=== PATIENT | female | born 1945 | race Caucasian/White ===

== ENCOUNTER 2020-01-01 22:41 | Inpatient (IN) | payer MEDICARE ==
[~2020-01-01] VITALS: Ht 162.6 cm; Wt 103.7 kg
[~2020-01-01 22:41] MED LIST: ACIDOPHILUS1 EAC2 PO; AMIT50 PO; AMLO10 PO; ASPI325 PO; ASPI81CH; ASPI81CH PO; ATOR10 PO; BLISTEX MEDICAT10 GM TP; CALCA500CH PO; CITA20 PO; CLOP75 PO; Cranberry 4001 EACH PO; ESCI10; EUTHYROX50 MCG PO; Emla Cream30 GM TP; FEXPSEER; FURO20 PO; HUMULIN 70100 UNIT/1; HYDACE5 PO; HYDMOR4; HYDMOR4 PO; Humalog100 UNIT/3 SC; INSDET100; INSDET100 SC; JANUMET XR 1001 EACH PO; JARDIANCE10 MG PO; JARDIANCE25 MG; LISI5 PO; METF500 PO; MULVITA PO; ONDA8 PO; PIOG30 PO; POTCHL20ER PO; SITA100T2 PO; SITA50T2 PO; STOOL SOFTENER50 MG; SULTRIDS PO; Silvadene20 GM TOP; Ultram50 MG PO; WOMEN'S DAILY1 EACH; WOMEN'S DAILY1 EACH PO; [UNRECOGNIZED DRUG - OTHER]; [UNRECOGNIZED DRUG - OTHER] PO; [UNRECOGNIZED DRUG - REMARK]; [UNRECOGNIZED DRUG - REMARK]; [UNRECOGNIZED DRUG - REMARK]; [UNRECOGNIZED DRUG - REMARK]; [UNRECOGNIZED DRUG - REMARK]
[2020-01-01] MEDS ORDERED: TRESIBA FL100 UNIT/2 SC (23:29)
[2020-01-01 23:50] LABS: BASOPHILS ABSOLUTE AUTO 0.07 K/mm3 (0.00-0.23); BASOPHILS PERCENT AUTO 0 % (0-2); EOSINOPHILS ABSOLUTE AUTO 0.07 K/mm3 (0.00-0.68); EOSINOPHILS PERCENT AUTO 0 % (0-6); Hematocrit 40.4 % (33.0-51.0); IMMATURE GRAN ABSOLUTE AUTO 0.09 K/mm3 (0.00-0.10); IMMATURE GRAN PERCENT AUTO 1 % (0-1); LYMPHOCYTES PERCENT AUTO 9 % (21-46); MONOCYTES ABSOLUTE AUTO 1.05 K/mm3 (0.16-1.47); MONOCYTES PERCENT AUTO 6 % (4-13); Mean Corpuscular HGB 28.4 pg (26.0-34.0); Mean Corpuscular HGB Conc 32.2 g/dL (31.5-36.5); Mean Corpuscular Volume 88 fL (80-100); Mean Platelet Volume 10.6 fL (9.1-12.4); NEUTROPHILS ABSOLUTE AUTO 14.12 K/mm3 (1.96-9.15); NEUTROPHILS PERCENT AUTO 83 % (41-73); Platelet Count 214 K/mm3 (150-400); RDW Coefficient Variation 14.4 % (11.7-14.2); RDW Standard Deviation 46.2 fL (35.1-46.3); Red Blood Cell Count 4.57 M/mm3 (3.80-5.20)
[2020-01-02 00:07] LABS: Albumin, Blood 2.7 g/dL (3.4-5.0); Albumin/Globulin Ratio 0.5 (0.8-1.8); Bilirubin, Total 0.3 mg/dL (0.1-1.0); Bun/Creatinine Ratio 12.4 (12.0-20.0); Calcium, Blood 9.2 mg/dL (8.5-10.1); Creatinine, Blood 2.41 mg/dL (0.40-1.00); Globulin, Blood 5.1 g/dL (2.2-4.0); Potassium, Blood 5.2 mmol/L (3.5-5.5); Total Protein, Blood 7.8 g/dL (6.4-8.2)
[2020-01-02 05:04] LABS: Source, Urine Clean Catch
[2020-01-02 05:06] LABS: Appearance, Urine Clear (Clear); Bilirubin, Urine Neg (Neg); Blood, Urine 2+ (Neg); Color, Urine Yellow (P-Yellow); Glucose Qualitative, Urine 4+ (Neg); Ketones, Urine Neg (Neg); Leukocyte Esterase, Urine Neg (Neg); Nitrite, Urine Neg (Neg); Protein, Urine 4+ (Neg); Urobilinogen, Urine NORM (Normal)
[2020-01-02 05:13] LABS: BASOPHILS ABSOLUTE AUTO 0.09 K/mm3 (0.00-0.23); BASOPHILS PERCENT AUTO 0 % (0-2); EOSINOPHILS ABSOLUTE AUTO 0.01 K/mm3 (0.00-0.68); EOSINOPHILS PERCENT AUTO 0 % (0-6); Hematocrit 40.5 % (33.0-51.0); IMMATURE GRAN ABSOLUTE AUTO 0.11 K/mm3 (0.00-0.10); IMMATURE GRAN PERCENT AUTO 1 % (0-1); LYMPHOCYTES ABSOLUTE AUTO 3.63 K/mm3 (0.84-5.20); LYMPHOCYTES PERCENT AUTO 17 % (21-46); MONOCYTES ABSOLUTE AUTO 1.64 K/mm3 (0.16-1.47); MONOCYTES PERCENT AUTO 8 % (4-13); Mean Corpuscular HGB 28.6 pg (26.0-34.0); Mean Corpuscular HGB Conc 32.1 g/dL (31.5-36.5); Mean Corpuscular Volume 89 fL (80-100); Mean Platelet Volume 10.3 fL (9.1-12.4); NEUTROPHILS ABSOLUTE AUTO 15.91 K/mm3 (1.96-9.15); NEUTROPHILS PERCENT AUTO 74 % (41-73); Platelet Count 228 K/mm3 (150-400); RDW Coefficient Variation 14.6 % (11.7-14.2); RDW Standard Deviation 47.3 fL (35.1-46.3); Red Blood Cell Count 4.54 M/mm3 (3.80-5.20); White Blood Cell Count 21.39 K/mm3 (4.00-11.30)
[2020-01-02 05:22] LABS: Bacteria Few /hpf; Hyaline Casts 0-2 /lpf (0-2); Squamous Epithelial Cells Few /hpf (Few); White Blood Cells, Urine 0-2 /hpf (0-5)
[2020-01-02 05:32] LABS: Albumin, Blood 2.6 g/dL (3.4-5.0); Albumin/Globulin Ratio 0.5 (0.8-1.8); Bilirubin, Total 0.3 mg/dL (0.1-1.0); Bun/Creatinine Ratio 12.7 (12.0-20.0); Calcium, Blood 9.5 mg/dL (8.5-10.1); Creatinine, Blood 2.37 mg/dL (0.40-1.00); Globulin, Blood 5.3 g/dL (2.2-4.0); Potassium, Blood 4.5 mmol/L (3.5-5.5); Total Protein, Blood 7.9 g/dL (6.4-8.2)
--- NOTE | 2020-01-02 06:40 | NUR ---
shift summary ao room air - >90% tele nsr incontinent uop - attends changed no bm, no c/o nausea at this time sba to bsc no skin issues no c/o abd pain at this time vss - but bp very high - labetalol x1 call light within reach, bed alarm on. will continue to monitor.
--- NOTE | 2020-01-02 09:00 | NUR ---
RECEIVED REPORT FROM NOC RN. DR GUTIERREZ AGREED TO INCREASE PT'S DIET TO ADVANCE TOLERATED, AT THIS TIME PT HAS HAD JELLO, WATER AND GRAPE JUICE AND HAS NO NEW OR WORSENING ABD PAIN OR NAUSEA. PT HAS HAD HIGH BP THIS MORNING SUSTAINING ABOVE 190s SYSTOLIC, CLONIDINE WAS ADDED BY DR GUTIERREZ TO HER MORNING MEDS TODAY. AT RECHECK IT HAD DECREASED SOME BUT IS NOT YET STABLE. LUNG SOUNDS WERE CLEAR, HEART SOUNDS S1 AND S2 ARE PRESENT, PT WAS ON TELE WITH NSR, TELE HAS BEEN D'CD THIS MORNING BY DR GUTIERREZ. PT DENIES PAIN IN HER ABDOMEN BUT DOES HAVE SOME SLIGHT DISCOMFORT WITH PALPITATION. 3+ PITTING EDEMA BILATERAL LOWER EXTREMITIES. DR. GUTIERREZ REVIEWED IMAGING REPORTS THIS MORNING AND FOUND THAT THE PT HAS A SPOT ON HER LIVER, SHE IS BEING REFERRED FOR AN MRI. PT DOES HAVE A HISTORY OF ANAL CANCER. CBG WAS HIGH THIS MORNING PT RECEIVED 6UNITS OF COVERAGE WELL HER DAILY 30 UNITS. PT IS A&O X4 AND SBA TO THE BEDSIDE COMMODE.
--- NOTE | 2020-01-02 09:56 | NUR ---
Call to Dr. Lawler at his request to notify him of the pt's cancer doctor. Pt states that she saw both Dr. Enrique and Dr. Sanabria approx 5 years ago for treatment of anal cancer, but saw Dr. Enrique most.
[2020-01-02 12:42] LABS: International Normalized Ratio 0.98; Prothrombin Time Results 10.5 Sec (9.7-11.5)
--- NOTE | 2020-01-02 12:52 | NUR ---
*UPDATE* AFTER REVIEWING LABS AND KIDNEY FUNCTION DR. VIDES DECIDED AGAINS THE MRI. HE SPOKE WITH THE PT ABOUT CONSULTING WITH HER FORMER ONCOLOGY PHYSCIAN AND STATED HE WOULD ALSO CONSULT HER PCP IN REGARDS TO POSSIBLY GETTING A PET SCAN FOR FURTHER IMAGING REGARDING THE SPOT ON HER LIVER. SPOKE WITH THE PT WELL HER DAUGHTER
--- NOTE | 2020-01-02 15:34 | NUR ---
ELEVATED D-DIMER PT STARTED ON HEPARIN DRIP, GIVEN 1 TIME HEPARIN BOLUS. PT REPORTED FEELING SOME PAIN BEHIND HER LEFT KNEE LAST WEEK, BUT IT SEEMED TO GO AWAY THE NEXT DAY. DR. VIDES VERBALLY ORDERED AN US TO THE LEFT LOWER EXTREMITY TO RULE OUT DVT.
--- NOTE | 2020-01-02 17:09 | NUR ---
TRANSFER TO MEDICAL FLOOR CALLED TO GIVE REPORT TO RICHY ARAUJO ON MEDICAL FLOOR. PT LEFT FOR TRANSFER AT 1705 VIA WHEELCHAIR ACCOMPANIED BY ALLAN LORENZANA RN AND GRANDDAUGHTER. PT HAD HIGH BP AT THE START OF SHIFT AND CLONODINE WAS ADDED TO HER DAILY MEDS, LABETOLOL WAS GIVEN PRN X 1 THIS AFTERNOON, BP IS TRENDING DOWN. PT REPORTED PAIN AROUND 1510 AND WAS GIVEN 0.25ML DILAUDED, AT REASSESMENT PT WAS RESTING AND DENIED PAIN WHEN ASKED. PT WAS FELL BACK ASLEEP AND HAD OXYGEN SATURATION AT 90%, CPAP WAS APPLIED WHILE SLEEPING. TELE WAS D'CD THIS MORNING. PT LEFT THE FLOOR WITH HEPARIN DRIP AT 22.2ML/H AND NS @ 100ML/H. DIET WAS ADVANCED TOLERATED THROUGHOUT THE DAY, PT IS NOW ON ADA DIET. PT IS A&0 X4, BUT CAN OCCASSIONALLY BE FUZZY OR FORGETFUL BUT IS QUICKLY REORIENTED, FAMILY STATES THIS IS BASELINE AFTER A STROKE SEVERAL YEARS AGO. PT HAS HAD COVERAGE THROUGHOUT THE DAY FOR HIGH CBG. PT IS SBA/1 PERSON WITH WALKER DURING TRANSFERS.
--- NOTE | 2020-01-02 17:15 | NUR ---
TRANSFERRED CARE TO MEDICAL FLOOR. PT TRANSFERRED FROM PCU TO MEDICAL FLOOR. THE [facility] IN ROOM. PT SLEEPY, BUT WANTS TO EAT DINNER. WARM BLANKETS AND WATER BROUGHT IN. ORIENTED TO ROOM. VITALS CHECKED. CALL LIGHT IN REACH.
--- NOTE | 2020-01-02 21:01 | NUR ---
ASSUMED CARE. AOX3, COOPERATIVE. DENIES PAIN OR DISCOMFORT. LUNGS CLEAR. TELE- NSR. VS WNL, AFEBRILE. HEPARIN RUNNING AT 15ML/HR. IV FLUIDS INFUSING WELL. NO CHEST PAIN OR PALPITATIONS. 3+ EDEMA BLE. ABDOMIN ROUND AND DISTENDED, BTX4. STATES LITTLE MORE THEN NORMAL. CPAP PLACED ON, CONTINUOUS BIOX IN PLACE. DENIES ANY NEEDS AT THIS TIME. CALL LIGHT IN REACH.
[2020-01-03 05:12] LABS: Alpha Feto Protein, Tumor Mkr 1.7 ng/mL (0.0-8.0); Cancer Antigen 19-9 629.6 U/mL (2.0-37.0)
--- NOTE | 2020-01-03 05:34 | NUR ---
SHIFT SUMMARY: AOX4, SLEPT WELL T/O NIGHT. CPAP WORN, CONTINOUS BIOX SHOWED STATES 89-92%. LUNGS CLEAR. 1 ASSIST TO THE BATHROOM. IV HEPARIN DOSE ADJUST X1 NOW RUNNING 14KG/HR 20.7ML/HR. LAST APTT 85.2. SHE DID HAVE CRITICAL HIGH BEFORE THAT AT 104.1. INTAKE THIS SHIFT WAS 360 ORAL, 1148 IV. FINISHED 1500ML ORDERED FLUIDS. HEPARIN IS ONLY THING RUNNING AT THIS TIME. ABNORMAL LAB: CA 19-9 ANTIGEN WAS 629.6 THIS AM. VS WNL, AFEBRILE. BS WAS 208. HARSH COUGH NOTED NO PRODUCTION. DENIES PAIN OR DISCOMFORT. 3+EDEMA BLE. OUTPUT THIS SHIFT WAS 200 PLUSE 1 UNMEASURED VOID. NO OTHER CHANGES TO REPORT. CALL LIGHT HAS REMAINED IN REACH AND USED APPROPRIATLY.
[2020-01-03 07:32] LABS: Hematocrit 32.6 % (33.0-51.0); Hemoglobin 10.2 g/dL (11.5-16.0); Mean Corpuscular HGB 28.7 pg (26.0-34.0); Mean Corpuscular HGB Conc 31.3 g/dL (31.5-36.5); Mean Corpuscular Volume 92 fL (80-100); Mean Platelet Volume 12.2 fL (9.1-12.4); Platelet Count 167 K/mm3 (150-400); RDW Coefficient Variation 14.6 % (11.7-14.2); RDW Standard Deviation 49.6 fL (35.1-46.3); Red Blood Cell Count 3.56 M/mm3 (3.80-5.20); White Blood Cell Count 11.58 K/mm3 (4.00-11.30)
[2020-01-03 07:48] LABS: Calcium, Blood 8.9 mg/dL (8.5-10.1); Creatinine, Blood 2.76 mg/dL (0.40-1.00); Potassium, Blood 4.6 mmol/L (3.5-5.5)
--- NOTE | 2020-01-03 19:05 | NUR ---
SHIFT SUMMARY: NO ACUTE CHANGES TO REPORT THIS SHIFT. PT A&O; CALM AND COOPERATIVE WITH CARE. NO C/O PAIN THIS SHIFT. PORTAL VEIN THROMBOSIS; HEPARIN DRIP @ 20.7 ML/HR. WENDY; LR @ 125. EXPECTED D/C WHEN KIDNEY FUNCTION IMPROVES; PET SCAN OUTPATIENT; FOLLOWUP c ONCOLOGY R/T LEFT HEPATIC LOBE MASS. WCTM.
[2020-01-04 04:58] LABS: Bun/Creatinine Ratio 12.4 (12.0-20.0); Calcium, Blood 8.9 mg/dL (8.5-10.1); Creatinine, Blood 2.9 mg/dL (0.40-1.00); Potassium, Blood 4.7 mmol/L (3.5-5.5)
--- NOTE | 2020-01-04 05:06 | NUR ---
PT A/O X4. UP WITH 1 ASSIST TO THE BATHROOM. DENIES PAIN, NAUSEA, SOB. PT HAS BEEN HAVING SOME BOTHERSOME COUGH OVERNIGHT. PT STATES THIS HAS BEEN GOING ON FOR "2 DAYS". MEDICATED WITH TESSALON PERLE PER EMAR. NO ACUTE CHANGES. CALLS APPROPRIATELY. WILL CONTINUE TO MONITOR.
--- NOTE | 2020-01-04 17:30 | NUR ---
LATE ENTRY--- 1530 PT UP TO THE BATHROOM. UPON RETURNING TO THE BED RESP LABORED PULSE HIGH AND SATS LOW. PT NOT IMPROVING WITH TIME SATS GETTING LOWER. LUNG SOUNDS ARE MORE AUDIBLE AND CRACKLES THAT WERE BARELY AUDIBLE IN THE AM ARE NOW COARSE AND LOUD. PT HAS ALREADY RECIEVED IV LASIX 20 MG AND 40 MG WELL ALBUMIN. CALLED DR VILCHIS FOR INCREASED WORK OF BREATHING AND DECREASED SATS O2 REQ INCREASED. RT RAY CALLED RECOMENDED PT STAY ON BIPAP AT THIS TIME. RECIEVED ORDER FOR 2V CHEST XRAY. ECHO DONE EARLIER IN THE SHIFT. ANOTHER OT ORDER FOR 40MG IV LASIX RECIEVED. 1630 AFTER IV LASIX SBP THAT WAS 225 PRIOR TO LASIX NOW DOWN TO 197. CALLED DR AGAIN THE PT BEGAN C/O HER CHEST BEING TIGHT HER PULSE WAS ELEVATED 120'S RESP RATE AGAIN HIGH, SATS MAINTAINING. PT NOW FEBRILE 101.2. RECIEVED ORDER FOR OT DOSE OF CLONIDINE 0.1MG PO AND TYLENOL 650MG Q6P FOR PAIN AND FEVER. IN HOUSE TRANSFER AND RAPID COVID ORDERS RECIEVED. PT TO BE TRANSFERED TO [facility]
--- NOTE | 2020-01-04 19:15 | NUR ---
TRANSFER NOTE- PT TRANSFERED TO PCU 13 PT ALERT DAUGHTER AT THE BEDSIDE. GRAVES CONSULT CALLED AND ORDERS RECIEVED AND ENTERED IN ORDER MANAGEMENT. PT HR SEEMS TO BE SUSTAINING 120'S TO 130'S. TELEPHONE REPORT COMPLETED PRIOR TO TRANSFER, AFTER PT TRANSFER MORE INFORMATION PASSED IN BEDSIDE REPORT, NO FURTHER QUESTIONS AT THAT TIME. PCU STAFF AT THE BEDSIDE.
[2020-01-04 21:47] LABS: Source, Urine Catheter
[2020-01-04 21:53] LABS: Bilirubin, Urine Neg (Neg); Blood, Urine 2+ (Neg); Glucose Qualitative, Urine 2+ (Neg); Ketones, Urine Neg (Neg); Leukocyte Esterase, Urine Neg (Neg); Nitrite, Urine Neg (Neg); Protein, Urine 3+ (Neg); Urobilinogen, Urine NORM (Normal)
[2020-01-04 21:54] LABS: Appearance, Urine Clear (Clear); Color, Urine Pale Yellow (P-Yellow)
[2020-01-04 21:58] LABS: Amorphous Light (0-Heavy); Bacteria Not Seen /hpf; Red Blood Cells, Urine 0-2 /hpf (0-2); Squamous Epithelial Cells Not Seen /hpf (Few); White Blood Cells, Urine Rare /hpf (0-5)
--- NOTE | 2020-01-05 03:29 | NUR ---
PT ALERT AND ORIENTED, COOPERATIVE WITH CARE. DENIES PAIN. PT WORE CPAP FOR ABOUT AN HOUR THEN ASKED TO BE TRANSFERED FROM BED TO RECLINER TO SLEEP, SHE WAS PLACED ON 3L 02 VIA NASAL CONULA. DAUGHTER WAS IN ROOM AT BEGINNING OF SHIFT AND CALLED TO CHECK UP AROUND 2300. CATHETER INSERTED DUE TO RETENTION AND 24 HOUR URINE STARTED. VSS, NO ACUTE CHANGES. PT IS RESTING COMFORTABLY IN RECLINER. CALL LIGHT IN REACH, WILL CONTINUE TO MONITOR.
[2020-01-05 04:23] LABS: BASOPHILS ABSOLUTE AUTO 0.06 K/mm3 (0.00-0.23); BASOPHILS PERCENT AUTO 0 % (0-2); EOSINOPHILS ABSOLUTE AUTO 0.22 K/mm3 (0.00-0.68); EOSINOPHILS PERCENT AUTO 2 % (0-6); Hematocrit 32.7 % (33.0-51.0); Hemoglobin 10.3 g/dL (11.5-16.0); IMMATURE GRAN ABSOLUTE AUTO 0.06 K/mm3 (0.00-0.10); IMMATURE GRAN PERCENT AUTO 0 % (0-1); LYMPHOCYTES ABSOLUTE AUTO 2.61 K/mm3 (0.84-5.20); LYMPHOCYTES PERCENT AUTO 19 % (21-46); MONOCYTES ABSOLUTE AUTO 1.38 K/mm3 (0.16-1.47); MONOCYTES PERCENT AUTO 10 % (4-13); Mean Corpuscular HGB 28.3 pg (26.0-34.0); Mean Corpuscular HGB Conc 31.5 g/dL (31.5-36.5); Mean Corpuscular Volume 90 fL (80-100); Mean Platelet Volume 11.7 fL (9.1-12.4); NEUTROPHILS ABSOLUTE AUTO 9.19 K/mm3 (1.96-9.15); NEUTROPHILS PERCENT AUTO 68 % (41-73); Platelet Count 202 K/mm3 (150-400); RDW Coefficient Variation 14.3 % (11.7-14.2); RDW Standard Deviation 46.7 fL (35.1-46.3); Red Blood Cell Count 3.64 M/mm3 (3.80-5.20); White Blood Cell Count 13.52 K/mm3 (4.00-11.30)
[2020-01-05 04:45] LABS: Alanine Aminotransfer (ALT/SGP 15 U/L (12-78); Albumin, Blood 2.5 g/dL (3.4-5.0); Albumin/Globulin Ratio 0.5 (0.8-1.8); Alk Phos 77 U/L (50-136); Anion Gap 5 mmol/L (6-16); Aspartate Aminotrans (AST/SGOT 13 U/L (12-37); Bilirubin, Direct <0.1 mg/dL (0.0-0.3); Bilirubin, Indirect Unable to Calculate mg/dL (0.1-0.7); Bilirubin, Total 0.4 mg/dL (0.1-1.0); Blood Urea Nitrogen 41 mg/dL (8-24); Bun/Creatinine Ratio 13.4 (12.0-20.0); CO2, Blood 23 mmol/L (21-32); CPK Creatine Kinase 83 U/L (26-193); Calcium, Blood 9.5 mg/dL (8.5-10.1); Chloride, Blood 110 mmol/L (98-108); Creatinine, Blood 3.05 mg/dL (0.40-1.00); Globulin, Blood 4.6 g/dL (2.2-4.0); Glomerular Filtration Rate 16 (60-); Glucose, Blood 186 mg/dL (70-99); Magnesium, Blood 2.1 mg/dL (1.6-2.4); Phosphorus, Blood 3.6 mg/dL (2.5-4.9); Potassium, Blood 4.5 mmol/L (3.5-5.5); Sodium, Blood 138 mmol/L (136-145); Total Protein, Blood 7.1 g/dL (6.4-8.2); Uric Acid, Blood 6.5 mg/dL (2.6-6.0)
--- NOTE | 2020-01-05 17:10 | NUR ---
SHIFT SUMMARY PT AXO, PLEASANT AND COOPERATIVE WITH CARE. HTN NOTED WITH VS, MEDICATED PER EMAR. HEPARIN DRIP INFUSING PER EMAR. PT DENIES PAIN. ENCOURAGED OOB AND UP TO CHAIR THROUGHOUT THE SHIFT. NO ACUTE CHANGES THIS SHIFT. ON 3L VIA NC. 24 HOUR URINE COLLECTION IN PROGRESS. 1L FLUID RESTRICTION. PT HAS HAD 420 SO FAR THIS SHIFT. BED IN LOW POSITION, CALL LIGHT WITHIN REACH.
--- NOTE | 2020-01-05 18:11 | NUR ---
pt resting will return for visit.
[2020-01-05 19:58] LABS: International Normalized Ratio 0.95; Prothrombin Time Results 10.2 Sec (9.7-11.5)
--- NOTE | 2020-01-06 01:18 | NUR ---
PATIENT IS ALERT AND ORIENTED CAN BE FORGETFULL AT TIMES. SLEPT MOST THE NIGHT. PATIENT FOLLOWING FLUID RESTRICTION. 02 SATS REMAIN ABOVE 90% ON 3L NC. HEPARIN INFUSING. 24 HOUR URINE COLLECTED AND SENT TO LAB. VVS, MEAL COOKER ACUTE CHANGES. CALL LIGHT IN REACH, BED IN LOW POSITION. WILL CONTINUE TO MONITOR.
[2020-01-06 03:51] LABS: BASOPHILS ABSOLUTE AUTO 0.08 K/mm3 (0.00-0.23); BASOPHILS PERCENT AUTO 1 % (0-2); EOSINOPHILS ABSOLUTE AUTO 0.34 K/mm3 (0.00-0.68); EOSINOPHILS PERCENT AUTO 3 % (0-6); Hematocrit 32.2 % (33.0-51.0); Hemoglobin 10.2 g/dL (11.5-16.0); IMMATURE GRAN ABSOLUTE AUTO 0.07 K/mm3 (0.00-0.10); IMMATURE GRAN PERCENT AUTO 1 % (0-1); LYMPHOCYTES ABSOLUTE AUTO 2.93 K/mm3 (0.84-5.20); LYMPHOCYTES PERCENT AUTO 23 % (21-46); MONOCYTES ABSOLUTE AUTO 1.64 K/mm3 (0.16-1.47); MONOCYTES PERCENT AUTO 13 % (4-13); Mean Corpuscular HGB 28.2 pg (26.0-34.0); Mean Corpuscular HGB Conc 31.7 g/dL (31.5-36.5); Mean Corpuscular Volume 89 fL (80-100); Mean Platelet Volume 11.2 fL (9.1-12.4); NEUTROPHILS ABSOLUTE AUTO 7.54 K/mm3 (1.96-9.15); NEUTROPHILS PERCENT AUTO 60 % (41-73); Platelet Count 188 K/mm3 (150-400); RDW Coefficient Variation 14.1 % (11.7-14.2); RDW Standard Deviation 45.5 fL (35.1-46.3); Red Blood Cell Count 3.62 M/mm3 (3.80-5.20)
[2020-01-06 04:09] LABS: Albumin, Blood 2.1 g/dL (3.4-5.0); Anion Gap 8 mmol/L (6-16); Blood Urea Nitrogen 42 mg/dL (8-24); CO2, Blood 24 mmol/L (21-32); Chloride, Blood 107 mmol/L (98-108); Creatinine, Blood 3.01 mg/dL (0.40-1.00); Glomerular Filtration Rate 16 (60-); Glucose, Blood 174 mg/dL (70-99); Magnesium, Blood 1.9 mg/dL (1.6-2.4); Phosphorus, Blood 3.6 mg/dL (2.5-4.9); Potassium, Blood 3.9 mmol/L (3.5-5.5); Sodium, Blood 139 mmol/L (136-145)
--- NOTE | 2020-01-06 12:30 | NUR ---
PT ALERT AND ORIENTED THROUGHOUT MORNING, DENIES INCREASED SOB OR CP. HEPARIN INFUSION CONTINUES AT 20 U/KG/HR OR 29.6 ML/HR, INFUSION CONFIRMED WITH RICHY MCCALLUM AND RICHY CUEVAS AT SHIFT CHANGE. PT OXYGEN FLOW TITRATED FROM 3L/MIN TO 2L/MIN, MAINTAINS OXYGEN SATURATIONS >93%. PT STATUS CHANGED TO MEDICAL DEPT, REPORT GIVEN TO RICHY POSADA. PT TRANSFERED WITHOUT INCIDENT.
[2020-01-07 05:46] LABS: Hematocrit 33.2 % (33.0-51.0); Hemoglobin 10.6 g/dL (11.5-16.0)
[2020-01-07 06:20] LABS: Anion Gap 8 mmol/L (6-16); Blood Urea Nitrogen 51 mg/dL (8-24); Bun/Creatinine Ratio 15.7 (12.0-20.0); CO2, Blood 25 mmol/L (21-32); Calcium, Blood 9.4 mg/dL (8.5-10.1); Chloride, Blood 105 mmol/L (98-108); Creatinine, Blood 3.25 mg/dL (0.40-1.00); Glomerular Filtration Rate 15 (60-); Glucose, Blood 197 mg/dL (70-99); Magnesium, Blood 2.2 mg/dL (1.6-2.4); Phosphorus, Blood 4.1 mg/dL (2.5-4.9); Potassium, Blood 3.9 mmol/L (3.5-5.5); Sodium, Blood 138 mmol/L (136-145)
--- NOTE | 2020-01-07 07:44 | NUR ---
MEAT CARVER SUMMARY Joe was able to ouse CPAP successfully all night. Domingo catheter draining large amounts of pale yellow urine. Patient is sticking to her fluid limits amounts without complaints, and has had no complaints of pain or discomfort overnight.
--- NOTE | 2020-01-07 11:05 | NUR ---
PATIENT GAVE PPERMISSION FOR DIRECTOR SAFETY TO PROVIDE CARE ON 01/07/2020
--- NOTE | 2020-01-07 15:11 | NUR ---
INITIAL PAL CARE CONSULT VISIT - Referral received for s/s management and advanced care planning. Pt was admitted with L upper abd pain, acute on chronic renal failure and discovery of hepatic mass. She is 74 years old and has past medical hx of DM, HTN, asthma, CKD stage 2, JUSTO and previous rectal cancer tx per Dr Sanabria and nonmalignant crainial mass. Pt is lying supine in bed and a little sleepy with medications to control pain. She wakes easily and is able to converse and participate in the conversation. Her daughter, Sharon is at the bedside and is also participatory in our conversation. Pt reports her pain s/s are well managed currently, "I don't have a single complaint". She understands she has a liver mass and that some testing cannot be done right now because of her impaired kidney function. Her daughter asked about reasons for impaired kidney function and we spoke about general causes & possible causes r/t hepatic mass, HTN, DM, medications and dehydration. I encouraged pt and froilan to ask physicians for additional specific input re: her renal impairment. Pt's daughter states they have pt's recommended PET scan scheduled for next week and will have consult visit with pt's oncologist after results of that are available. We reviewed advanced care planning. Pt does not have an AD or POLST at this time. I feel she is a little too sleepy to work on that today. She confirmed that her froilan, Sharon would be her surrogate medical decision maker if she was unable to communicate with us. She confirmed at this time she would like to be a full code, which is consistent with our current orders. I reviewed CPR and intubation and burden vs benefit of multiple advanced care options. Pt and daughter receptive to reviewing "Hard Choices for [employer] People" to help generate questions for pt's oncologist and PCP when she meets with them. I also gave our contact info to pt and froilan if they would like to contact Palliative care for questions, discussion or completing an AD or POLST in the future. Pt was able to assist me and her froilan with a change of position in bed. Michael pitting edema noted. Pt appears comfortable as reported. No nonverbal indicators of pain noted. Pt seems subdued and sl anxious, which is completely understandable under the circumstances of a new dx and multiple co-morbidities affecting both work-up and treatment options. She appears to have good support with attentive daughter at bedside and helping coordinate appointments and care. No further f/u needed at this time but Pal Care will remain available and return if requested or indicated by Drs or staff.
--- NOTE | 2020-01-08 05:26 | NUR ---
74 year old Female admitted 01/02/20 with ARF presented with acute abd pain per her report which has since resolved. She has full code status, had pallative care consult. HX of breast & colon cancer. Had chemo for colon cancer. Had CT which showed thrombus & mass. PT aware as well as DTR acknowledged. PT had escobar cath dc on day shift. Able to void. Up with assist. Uses CPAP at HS. PT hoping to DC when cleared. Denies acute distress.
[2020-01-08 05:37] LABS: BASOPHILS ABSOLUTE AUTO 0.07 K/mm3 (0.00-0.23); BASOPHILS PERCENT AUTO 1 % (0-2); EOSINOPHILS ABSOLUTE AUTO 0.35 K/mm3 (0.00-0.68); EOSINOPHILS PERCENT AUTO 3 % (0-6); Hematocrit 32.2 % (33.0-51.0); Hemoglobin 10.2 g/dL (11.5-16.0); IMMATURE GRAN ABSOLUTE AUTO 0.05 K/mm3 (0.00-0.10); IMMATURE GRAN PERCENT AUTO 1 % (0-1); LYMPHOCYTES ABSOLUTE AUTO 2.76 K/mm3 (0.84-5.20); LYMPHOCYTES PERCENT AUTO 27 % (21-46); MONOCYTES PERCENT AUTO 16 % (4-13); Mean Corpuscular HGB 27.8 pg (26.0-34.0); Mean Corpuscular HGB Conc 31.7 g/dL (31.5-36.5); Mean Corpuscular Volume 88 fL (80-100); Mean Platelet Volume 11.7 fL (9.1-12.4); NEUTROPHILS ABSOLUTE AUTO 5.33 K/mm3 (1.96-9.15); NEUTROPHILS PERCENT AUTO 53 % (41-73); Platelet Count 221 K/mm3 (150-400); RDW Coefficient Variation 13.8 % (11.7-14.2); RDW Standard Deviation 43.9 fL (35.1-46.3); Red Blood Cell Count 3.67 M/mm3 (3.80-5.20); White Blood Cell Count 10.16 K/mm3 (4.00-11.30)
[2020-01-08 06:07] LABS: Albumin, Blood 2.1 g/dL (3.4-5.0); Albumin/Globulin Ratio 0.4 (0.8-1.8); Bilirubin, Total 0.2 mg/dL (0.1-1.0); Bun/Creatinine Ratio 16.6 (12.0-20.0); Calcium, Blood 9.4 mg/dL (8.5-10.1); Creatinine, Blood 3.55 mg/dL (0.40-1.00); Globulin, Blood 4.9 g/dL (2.2-4.0); Potassium, Blood 3.6 mmol/L (3.5-5.5)
[2020-01-08] MEDS ORDERED: XARELTO15 MG PO (11:11)
[2020-01-08] MEDS ORDERED: Flomax0.4 MG PO (11:12)
[2020-01-08] MEDS ORDERED: BUME2 PO (11:15)
[2020-01-08] MEDS ORDERED: FAMO10 PO (11:16)
[2020-01-08] MEDS ORDERED: Catapres0.2 MG PO (11:16)
[2020-01-08] MEDS ORDERED: HYDR10 PO (11:17)
[2020-01-08] MEDS ORDERED: ISOSORBIDE MONO30 MG PO (11:18)
[2020-01-08] MEDS ORDERED: HUMALOG KW100 UNIT/1 SC (11:18)
[2020-01-08] MEDS ORDERED: MIRALAX17 GM PO (11:19)
[2020-01-08] MEDS ORDERED: METO5 PO (11:19)
--- NOTE | 2020-01-08 12:27 | NUR ---
DISCHARGED HOME IN CARE OF DAUGHTER. ALL PERSONAL BELONGINGS IN HER POSSESSION. VERBALIZED UNDERSTANDING OF THE DISCHAGE INSTRUCTIONS, FOLLOW-UPS AND MEDICATIONS. ALL QUESTIONS ANSWERED.
== END 2020-01-08 12:31 | disposition home or self-care (01) | DRG 441 ==
LOC: ER 22:41 → PCU 22:42 → MEDS 01-02 15:52 → PCU 01-02 15:53 → MEDS 01-02 17:08 → PCU 01-04 19:05 → MEDS 01-06 12:44
PROVIDERS: Emergency Medicine; Internal Medicine; Internal Medicine Gastroenterology; Internal Medicine Nephrology; Physician Assistant; ADMIT Internal Medicine
DX: I81 Portal vein thrombosis (principal); I50.33 Acute on chronic diastolic (congestive) heart failure; N17.9 Acute kidney failure, unspecified; E87.2 Acidosis; R65.10 Systemic inflammatory response syndrome (SIRS) of non-infectious origin without acute organ dysfunction; I13.0 Hypertensive heart and chronic kidney disease with heart failure and stage 1 through stage 4 chronic kidney disease, or unspecified chronic kidney disease; I16.0 Hypertensive urgency; D72.829 Elevated white blood cell count, unspecified; N18.2 Chronic kidney disease, stage 2 (mild); Z85.048 Personal history of other malignant neoplasm of rectum, rectosigmoid junction, and anus; G47.33 Obstructive sleep apnea (adult) (pediatric); E78.5 Hyperlipidemia, unspecified; Z87.891 Personal history of nicotine dependence; Z79.4 Long term (current) use of insulin; E66.9 Obesity, unspecified; Z20.828 Contact with and (suspected) exposure to other viral communicable diseases; E11.22 Type 2 diabetes mellitus with diabetic chronic kidney disease; E88.09 Other disorders of plasma-protein metabolism, not elsewhere classified; Z68.36 Body mass index [BMI] 36.0-36.9, adult
CPT/HCPCS: 36415; 51703; 71045; 71046; 74176; 76705; 80048; 80053; 80069; 81001; 81050; 82105; 82150; 82248; 82378; 82550; 82947; 83605; 83690; 83735; 83880; 84100; 84145; 84156; 84300; 84550; 85014; 85018; 85025; 85027; 85379; 85610; 85651; 85730; 86301; 87040; 93005; 93010; 93306; 93971; 94660; 94762; 96365; 96372; 96374; 96375; 96376; 99285-25; A9270; A9270-GY; G0378; J0696; J1170; J1644; J1940; J2405; J7030; J7120; P9046; U0004

== ENCOUNTER 2020-01-12 09:38 | Inpatient (IN) | payer MEDICARE ==
[~2020-01-12] VITALS: Ht 157.5 cm; Wt 92.8 kg
[~2020-01-12 09:38] MED LIST changes: +BUME2 PO; +Catapres0.2 MG PO; +FAMO10 PO; +Flomax0.4 MG PO; +HUMALOG KW100 UNIT/1 SC; +HYDR10 PO; +ISOSORBIDE MONO30 MG PO; +METO5 PO; +MIRALAX17 GM PO; +TRESIBA FL100 UNIT/2 SC; +XARELTO15 MG PO
[2020-01-12] MEDS ORDERED: GLIP10ER PO (10:32)
[2020-01-12 12:20] LABS: BASOPHILS ABSOLUTE AUTO 0.07 K/mm3 (0.00-0.23); BASOPHILS PERCENT AUTO 1 % (0-2); EOSINOPHILS ABSOLUTE AUTO 0.24 K/mm3 (0.00-0.68); EOSINOPHILS PERCENT AUTO 2 % (0-6); Hematocrit 34.1 % (33.0-51.0); IMMATURE GRAN ABSOLUTE AUTO 0.05 K/mm3 (0.00-0.10); IMMATURE GRAN PERCENT AUTO 0 % (0-1); LYMPHOCYTES ABSOLUTE AUTO 3.09 K/mm3 (0.84-5.20); LYMPHOCYTES PERCENT AUTO 25 % (21-46); MONOCYTES ABSOLUTE AUTO 1.51 K/mm3 (0.16-1.47); MONOCYTES PERCENT AUTO 12 % (4-13); Mean Corpuscular HGB 28.2 pg (26.0-34.0); Mean Corpuscular HGB Conc 32.3 g/dL (31.5-36.5); Mean Corpuscular Volume 87 fL (80-100); Mean Platelet Volume 10.9 fL (9.1-12.4); NEUTROPHILS ABSOLUTE AUTO 7.52 K/mm3 (1.96-9.15); NEUTROPHILS PERCENT AUTO 60 % (41-73); Platelet Count 300 K/mm3 (150-400); RDW Coefficient Variation 13.6 % (11.7-14.2); White Blood Cell Count 12.48 K/mm3 (4.00-11.30)
[2020-01-12] MEDS ORDERED: NITROFURANTOIN50 M2 PO (12:36)
[2020-01-12] MEDS ORDERED: METF500C PO (12:39)
[2020-01-12 12:40] LABS: Albumin, Blood 2.6 g/dL (3.4-5.0); Albumin/Globulin Ratio 0.5 (0.8-1.8); Bilirubin, Total 0.3 mg/dL (0.1-1.0); Calcium, Blood 9.6 mg/dL (8.5-10.1); Creatinine, Blood 4.5 mg/dL (0.40-1.00); Globulin, Blood 5.1 g/dL (2.2-4.0); Potassium, Blood 3.5 mmol/L (3.5-5.5); Total Protein, Blood 7.7 g/dL (6.4-8.2)
--- NOTE | 2020-01-12 17:33 | NUR ---
SHIFT SUMMARY- PT ADMITTED THROUGH THE ED FOR PERMACATH PLACEMENT. CALLED DR BAKER TO DETERMINE IF THE PT WOULD BE HAVING THE PROCEDURE TONIGHT THE PT WAS ASKING FOR FOOD AND HAD A DIET ORDER. DR BAKER STATED TO KEEP THE PT NPO HE WOULD BE HERE SHORTLY TO PLACE THE PERMACATH. SURGICAL TEAM JUST ARRIVED AT 1735 TO TAKE HER FOR CATH PLACEMENT. PT HAS REMAINED NPO SINCE HER ADMIT. PT DAUGHTER HAS BEEN AT THE BEDSIDE SINCE THE PT ARRIVED. DAUGHTER WENT TO THE STORE AND PLANS TO RETURN WITH A NEW BOOK FOR THE PT TO READ TONIGHT. UNCERTAIN IF DIALYSIS IS PLANNED FOR TONIGHT OR TOMORROW MORNING.
--- NOTE | 2020-01-13 03:36 | NUR ---
SHIFT SUMMARY A/O, ABLE TO MAKE NEEDS KNOWN. COOPERATIVE WITH CARE. ANSWERS QUESTIONS APPROPRIATELY. C/O PAIN/DISCOMFORT TO RCW FROM PERMACATH PLACEMENT; NEW ORDERS FOR TYLENOL Q4. MEDICATED PER EMAR. VSS/AFEBRILE. PERMACATH SITE STARTED LEAKING SANGINOUS FLUID AROUND 2250; PRESSURE DRESSING APPLIED TO RE-INFORCE. CONTINUED TO CHECK T/O SHIFT; OF NOW VERY SLOW. DID NOT APPEAR TO REST MUCH OVER NIGHT. NO OTHER ACUTE CHANGES NOTED OVERNIGHT. BED REAMINED IN LOWEST POSITION. CALL LIGHT AND BELONGINGS WITHIN REACH. WCTM. REPORT TO ONCOMING RN.
[2020-01-13 05:57] LABS: Hematocrit 30.4 % (33.0-51.0); Hemoglobin 9.9 g/dL (11.5-16.0)
[2020-01-13 06:13] LABS: Albumin, Blood 2.3 g/dL (3.4-5.0); Anion Gap 11 mmol/L (6-16); Blood Urea Nitrogen 87 mg/dL (8-24); Bun/Creatinine Ratio 18.9 (12.0-20.0); CO2, Blood 27 mmol/L (21-32); Calcium, Blood 8.9 mg/dL (8.5-10.1); Chloride, Blood 98 mmol/L (98-108); Glomerular Filtration Rate 10 (60-); Glucose, Blood 219 mg/dL (70-99); Magnesium, Blood 2.6 mg/dL (1.6-2.4); Phosphorus, Blood 5.9 mg/dL (2.5-4.9); Potassium, Blood 3.7 mmol/L (3.5-5.5); Sodium, Blood 136 mmol/L (136-145)
--- NOTE | 2020-01-13 08:25 | NUR ---
CALLED DR SAMANO- PT IS GOING TO HER FIRST BOUT OF DIALYSIS THIS MORNING AT 0900. SBP WAS IN THE 130'S THIS MORNING. PT HAS AMLODIPINE, BUMEX, CLONIDINE, IMDUR, FLOMAX, METOLAZONE AND HYDRALIZINE ORDERED, CONCERN FOR PT NOT TOLLERATING DIALYSIS AFTER THESE MEDICATIONS. CHANGED SOME ORDERS AND PLACED PARAMETERS FOR THE PT BP MEDS AND ORDER RECIEVED TO HOLD BP MEDS UNTIL AFTER DIALYSIS.
--- NOTE | 2020-01-13 15:18 | NUR ---
Met with Joe and her dtr, Sharon, in her room this afternoon. Joe had her first run of HD this morning and she states that she did ok. She appears fatigued, however has no complaints at this time. She will be receiving HD again tomorrow per nurse report. Joe has an appointment for a PET scan on Tuesday01/15/20 at 1230 and she wants to make sure she doesn't miss this appointment to evaluate her liver. Brief overview of HD with Joe and her dtr. No questions at this time. PC will continue to follow.
--- NOTE | 2020-01-13 16:00 | NUR ---
CALLED DR HAAS- PT HAS ORDR FOR ARANESP WHICH HAS A RISK FOR CAUSING BLOOD CLOTS. 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 CALLED MEGHA MEADOWS AND HE AGREED THERE WAS A MUCH INCREASED RISK FOR THIS PT. SPOKE TO DR SAMINA SCHLUZ TO HOLD AND DC THE ORDER.
--- NOTE | 2020-01-13 16:30 | NUR ---
CALLED PALLIATIVE CARE RN CASSI- PT WAS RECENTLY DISCHARGED FROM THE HOSPITAL ON [facility], DTR STATED THAT SHE FILLED THE SCRIPT WHICH COST $304. LOOKS LIKE THE PT WILL BE CHANGED TO ELIQUIS D/T RENAL FUNCTION. DTR RAISED THE CONCERN OF THE COST FOR THIS MEDICINE THEY JUST GOT THE OTHER. PALLIATIVE CARE RN WILL LOOK FOR SOME RESOURCES AND SPEAK WITH THE PT FAMILY.
--- NOTE | 2020-01-13 17:00 | NUR ---
CALLED RT MARICRUZ- PT RECIEVED A DOSE OF IV ZOFRAN. IMMEDIATELY AFTER SHE BECAME VERY GROGGY, PT HAS NOT SLEPT SINCE SHE WOKE FROM PERMACATH PLACEMENT, AND SHE HAD HER FIRST BOUT OF DIALYSIS TODAY. PT ON CONT BIOX SATS 88-92 REGULARLY. PT DAUGHTER LEFT SO THE PT COULD GET SOME SLEEP AND HER SATS REDUCED AGAIN TO LOW 82%. PLACED THE PT ON CPAP AND HER SATS IMPROVED UNTIL SHE FELL ASLEEP THEN SHE DROPPED TO 84% AND STAYED THERE, RT ARRIVED AND PLACED THE PT ON CPAP WITH 3L BLEED IN. PT SATS MAINTAINING AT 90-92% AT THIS TIME.
--- NOTE | 2020-01-13 17:03 | NUR ---
Pt's dtr has questions re: assistance programs that may be available to assist with the cost of eliquis. Provided pt and her dtr with [employer] support 800 numer as well as [employer] Patient Assistance program number. LM for CM to see if they have any other options for Rx assistance. Pt and her dtr expressed gratitude for the information.
--- NOTE | 2020-01-13 17:30 | NUR ---
CALLED RT MARICRUZ- PT SATS STAYING STEADY AT 97% ON THE CPAP NOW. OK TO REDUCE THE O2 BLEED IN TO 1L. PT SATS MAINTAINING AT 91-92%.
--- NOTE | 2020-01-13 18:17 | NUR ---
SPOKE TO MEGHA MEADOWS- PT FIRST DOSE OF BUMEX WAS DELAYED D/T HER FIRST BOUT OF DIALYSIS TODAY SO SHE RECIEVED IT AT NOON. PER MEGHA NEXT DOSE SCHEDULED AT 1800 SHOULD BE MOVED OK TO GIVE WITH EVENING MEDS AT 2100.
--- NOTE | 2020-01-13 18:24 | NUR ---
CALLED DR SAMANO- PT STATED NAUSEA AND ASKED FOR EMESIS BAG. NO ORDER FOR NAUSEA MEDS IN EMAR. LEFT A MESSAGE 1650.
--- NOTE | 2020-01-13 18:34 | NUR ---
SHIFT SUMMARY- PT ALERT AND ORIENTED BUT A LITTLE FORGETFUL. PT MEDICATED FOR NAUSEA ONCE THIS EVENING, IT SEEMED TO MAKE HER VERY GROGGY AND SHE TOOK A 45 MINUTE NAP WITH O2 ON HER CPAP SEE PREVIOUS NOTES FOR DETAILS. PT WOKE FROM THE NAP BRIGHT AND SHINY IN [place] AND ATE DINNER WITH [employer]. NEW DIET ORDERED FOR HER HIGH PROTIENE, LOW CARB ADA. PT CAN NOT HAVE FRUIT AT THIS TIME. THESE ARE DIET RESTRICTIONS FOR THE PT IMPENDING PET SCAN PLANNED FOR TUESDAY. PLAN IS FOR PT TO RECIEVE DIALYSIS TOMORROW AND THEN RETURN HOME. FAMILY IS VERY INVOLVED WITH THE PT CARE AND HAVE SOME MEDICAL BACKGROUND. PT CURRENTLY SITTING UP IN BED WITH CALL LIGHT IN REACH, NO S&S OF DISTRESS NOTED AT THIS TIME WILL CTM. PT ON ROOM AIR SATS 92%.
--- NOTE | 2020-01-13 23:18 | NUR ---
01/13/20 2300 HAVING NAUSEA AND VOMITING THIS EVENING. MEDICATED AND FINALLY ABLE TO TAKE PM MEDS WITH WATER. SALTINE CRACKERS GIVEN TO HELP WITH N/V. RT CHEST PERMA-CATH SITE WITHOUT BLEEDING NOTED.
--- NOTE | 2020-01-13 23:52 | NUR ---
01/13/20 2350 PULSE OXIMETER READING 86% ON ROOM AIR WHILE SLEEPING. CPAP OFF SHE HAS ON AND OFF N/V. RN APPLIED O2 AT 2LPM VIA N/C. RESP. CARE, PARVEEN, NOTIFIED.
[2020-01-14 06:00] LABS: Hematocrit 33.6 % (33.0-51.0); Hemoglobin 10.4 g/dL (11.5-16.0)
--- NOTE | 2020-01-14 06:20 | NUR ---
01/14/20 0610 SLIGHT NAUSEA AFTER SHE GOT UP TO BATHROOM TO VOID. ALSO SHE HAD SOME INCONTINENCE IN BRIEF. VITALS STABLE. SIPPING ON ICE WATER. NO OTHER COMPLAINTS.
[2020-01-14 06:29] LABS: Albumin, Blood 2.3 g/dL (3.4-5.0); Anion Gap 8 mmol/L (6-16); Blood Urea Nitrogen 49 mg/dL (8-24); Bun/Creatinine Ratio 13.5 (12.0-20.0); CO2, Blood 33 mmol/L (21-32); Calcium, Blood 8.9 mg/dL (8.5-10.1); Chloride, Blood 96 mmol/L (98-108); Creatinine, Blood 3.62 mg/dL (0.40-1.00); Glomerular Filtration Rate 13 (60-); Glucose, Blood 295 mg/dL (70-99); Magnesium, Blood 2.6 mg/dL (1.6-2.4); Potassium, Blood 3.7 mmol/L (3.5-5.5); Sodium, Blood 137 mmol/L (136-145)
[2020-01-14 08:10] LABS: HBSAG SCREEN Negative (Negative)
--- NOTE | 2020-01-14 18:33 | NUR ---
SHIFT SUMMARY CARLITA WENT TO DIALYSIS THIS MORNING. SHE WAS TOO NAUSEOUS BEFOREHAND TO TAKE PILLS. IV ZOFRAN AND IV PHENERGAN GIVEN PRIOR TO HER LEAVING THE FLOOR. UPON HER RETURN, SHE FELT WELL ENOUGH TO TAKE THEM. DAUGHTER AT BS FOR MOST OF THE DAY (RN AT [place]). SBA TO BR. WAS ON 2L OXYGEN THIS MORNING, WEANED TO ROOM AIR WHILE AWAKE, BUT DESATS WHEN NAPPING--ENSURE CPAP ON FOR SLEEPING. (DESAT TO 82%). INSULIN CHANGED TO MED SLIDING SCALE WITH AN ADDITIONAL 5 UNITS LANTUS DAILY PER DR HAAS. COMPLAINED OF SOME PAIN IN HER R SHOULDER NEAR PERMACATH, TYLENOL AND TRAMADOL GIVEN. TOOK MEDS PRESCRIBED, CALL LIGHT IN REACH, WCTM
--- NOTE | 2020-01-14 18:39 | NUR ---
Spiritual care note: I met with pt's dtr at bedside. Pt appeared weak and slept throughout visit. Dtr admits to feeling overwhelmed with pt's illness and decline. she is hopeful that dialysis "will kick-start" pt's kidneys. Dtr expresses hope that mom will return to baseline. Provided gentle college and career counselor and encouraged self-care while pt hospitalized. Dtr feels obligated to stay. I sispect pt and dtr will benefit from ACP at some point. Not sure expectaions are realistic. Today was not the day for that however. I will remain available.
--- NOTE | 2020-01-15 04:39 | NUR ---
SHIFT SUMMARY AOX4. SLEEPY/DROWSY @BEGINNING OF SHIFT, HOWEVER ABLE TO ANSWER QUESTIONS APPROPRIATE. DID HAVE DIALYSIS YESTERDAY 01/14/20. REPORTED 8[facility]10 [facility], REPOSITIONED & GAVE TRAMADOL 1X FOR 7/10 PAIN- PT STATED MILD RELIEF c PAIN LEVEL DECREASING TO 6/10. PT REPORTED NAUSEA AFTER AMBULATING TO RESTROOM, MEDICATED c ZOFRAN, GAVE ICE CHIPS, REPOSITIONED- STATES MILD RELIEF FROM NAUSEA. SPO2 DROPPING TO LOW 80'S ON RA c & W/O CPAP, PLACED PT ON 2L O2 & SPO2 INCREASED >90%. PLAN TO DC AFTER OUTPATIENT DIALYSIS IS SET UP. CALL LIGHT IN REACH.
[2020-01-15 05:30] LABS: Hematocrit 34.2 % (33.0-51.0); Hemoglobin 10.7 g/dL (11.5-16.0)
[2020-01-15 06:02] LABS: Albumin, Blood 2.5 g/dL (3.4-5.0); Anion Gap 7 mmol/L (6-16); Blood Urea Nitrogen 34 mg/dL (8-24); Bun/Creatinine Ratio 9.1 (12.0-20.0); CO2, Blood 33 mmol/L (21-32); Calcium, Blood 8.9 mg/dL (8.5-10.1); Chloride, Blood 94 mmol/L (98-108); Creatinine, Blood 3.72 mg/dL (0.40-1.00); Glomerular Filtration Rate 13 (60-); Glucose, Blood 213 mg/dL (70-99); Magnesium, Blood 2.1 mg/dL (1.6-2.4); Phosphorus, Blood 4.9 mg/dL (2.5-4.9); Potassium, Blood 3.8 mmol/L (3.5-5.5); Sodium, Blood 134 mmol/L (136-145)
[2020-01-15 07:10] LABS: HBSAG SCREEN Negative (Negative); HEP A AB, IGM Negative (Negative); HEP B CORE AB, IGM Negative (Negative); HEP C VIRUS AB 0.1 (0.0-0.9)
[2020-01-15] MEDS ORDERED: ELIQUIS5 MG PO ×2 (12:56→13:18)
[2020-01-15] MEDS ORDERED: ONDA4ODT MM (12:58)
--- NOTE | 2020-01-15 14:48 | NUR ---
DISCHARGE NOTE PT IV REMOVED BY RICHY YE. PT ASSISTED INTO HOME CLOTHING BY DISTRICT MEDICAL EXAMINER AND RICHY YE. PT BELONGINGS PRESENT WITH PT AND DAUGHTER UPON DC. THIS RN REVIEWED DC INSTRUCTIONS AND MEDICATIONS WITH PT AND DAUGHTER. PT ON RA AT DC AND SATS IN 98%. PT WHEELED OFF UNIT IN WHEELCHAIR BY DISTRICT MEDICAL EXAMINER AT APPROXIMATELY 1445.
== END 2020-01-15 14:39 | disposition home health service (06) | DRG 673 ==
LOC: ER 09:38 → MEDS 09:39
PROVIDERS: Emergency Medicine; Internal Medicine; Internal Medicine Nephrology; ADMIT Hospitalist
PROC: 05HM33Z Insertion of Infusion Device into Right Internal Jugular Vein, Percutaneous Approach (ICD-10-PCS; principal; 2020-01-13)
PROC: B513ZZA Fluoroscopy of Right Jugular Veins, Guidance (ICD-10-PCS; 2020-01-13)
PROC: 5A1D70Z Performance of Urinary Filtration, Intermittent, Less than 6 Hours Per Day (ICD-10-PCS; 2020-01-13)
PROC: 0JH63XZ Insertion of Tunneled Vascular Access Device into Chest Subcutaneous Tissue and Fascia, Percutaneous Approach (ICD-10-PCS; 2020-01-13)
PROC: 5A1D70Z Performance of Urinary Filtration, Intermittent, Less than 6 Hours Per Day (ICD-10-PCS; 2020-01-14)
PROC: 5A1D70Z Performance of Urinary Filtration, Intermittent, Less than 6 Hours Per Day (ICD-10-PCS; 2020-01-15)
DX: E11.22 Type 2 diabetes mellitus with diabetic chronic kidney disease (principal); I81 Portal vein thrombosis; N18.6 End stage renal disease; I13.2 Hypertensive heart and chronic kidney disease with heart failure and with stage 5 chronic kidney disease, or end stage renal disease; I50.32 Chronic diastolic (congestive) heart failure; R65.10 Systemic inflammatory response syndrome (SIRS) of non-infectious origin without acute organ dysfunction; N17.9 Acute kidney failure, unspecified; Z99.2 Dependence on renal dialysis; D63.1 Anemia in chronic kidney disease; E66.01 Morbid (severe) obesity due to excess calories; G47.33 Obstructive sleep apnea (adult) (pediatric); I16.0 Hypertensive urgency; Z86.73 Personal history of transient ischemic attack (TIA), and cerebral infarction without residual deficits; Z85.048 Personal history of other malignant neoplasm of rectum, rectosigmoid junction, and anus; E03.9 Hypothyroidism, unspecified; Z87.891 Personal history of nicotine dependence; I48.91 Unspecified atrial fibrillation; N25.81 Secondary hyperparathyroidism of renal origin; J45.909 Unspecified asthma, uncomplicated; F03.90 Unspecified dementia, unspecified severity, without behavioral disturbance, psychotic disturbance, mood disturbance, and anxiety; E87.70 Fluid overload, unspecified; Z68.36 Body mass index [BMI] 36.0-36.9, adult
CPT/HCPCS: 36415; 36558; 71045; 77001; 80053; 80069; 80074; 82947; 83735; 85014; 85018; 85025; 86317; 87340; 94660; 94762; 97116; 97162; 97165; 97535; 99152; 99284; A9270; A9270-GY; C1750; C1769; C1894; G0378; J1644; J2250; J2405; J2550; J3010; J7030; J7040; U0004

== ENCOUNTER 2020-08-15 08:42 | Day surgery (SDC) | payer MEDICARE ==
[~2020-08-15] VITALS: Ht 162.6 cm; Wt 89.3 kg
[~2020-08-15 08:42] MED LIST changes: +ALUMINUM H320 MG/5 M PO; +ELIQUIS5 MG PO; +GLIP10ER PO; +METF500C PO; +NITROFURANTOIN50 M2 PO; +ONDA4ODT MM; +PROM25 PO; +RENAL VITE PO
--- NOTE | 2020-08-15 09:51 | NUR ---
PT TO SDS VIA WC. Patient confirms NPO status and agrees with scheduled surgery. Patient reports completing Chlorhexadine shower X2 prior to admission to hospital. History, Chart, Medications and Allergies reviewed before start of procedure. Lungs clear T/O to Auscultation. Surgical site prepped with 2% Chlorhexidine cloth wipe. Patient States Post-Procedure ride home has been arranged.
--- NOTE | 2020-08-15 12:32 | NUR ---
Patient up to Ambulate independently. Gait steady. Discharge instructions reviewed with patient/Granddaughter. Patient/Granddaughter verbalizes understanding. Copy given to patient to take home. Dressing to procedure site clean, dry, intact with no visible drainage, swelling, erythema or bruising noted. Discharged via wheelchair to private car for ride home.
== END 2020-08-15 12:22 | disposition home or self-care (01) ==
LOC: ORSCMMR 08:42 → ORD 10:00 → ORSCMMR 12:22
PROVIDERS: Surgery
PROC: 0JPT3WZ Removal of Totally Implantable Vascular Access Device from Trunk Subcutaneous Tissue and Fascia, Percutaneous Approach (ICD-10-PCS; principal; 2020-08-15 10:00)
DX: Z45.2 Encounter for adjustment and management of vascular access device (principal); Z85.048 Personal history of other malignant neoplasm of rectum, rectosigmoid junction, and anus; E78.5 Hyperlipidemia, unspecified; I10 Essential (primary) hypertension; G47.33 Obstructive sleep apnea (adult) (pediatric); E11.9 Type 2 diabetes mellitus without complications; Z79.4 Long term (current) use of insulin; Z79.899 Other long term (current) drug therapy; Z87.891 Personal history of nicotine dependence; E66.9 Obesity, unspecified; Z68.34 Body mass index [BMI] 34.0-34.9, adult; E03.9 Hypothyroidism, unspecified
CPT/HCPCS: 82947; J0690; J1100; J2250; J2405; J2704; J3010; J7120

== ENCOUNTER 2021-01-26 12:23 | Day surgery (SDC) | payer MEDICARE ==
[~2021-01-26] VITALS: Ht 162.6 cm; Wt 86.0 kg
[~2021-01-26 12:23] MED LIST changes: +Synthroid200 MCG PO
--- NOTE | 2021-01-26 16:15 | NUR ---
patient [facility] to [facility]. sleeping. awakes easily to verbal stimuli. permacath dressing site soft and nontender. no bleeding no hematoma.
--- NOTE | 2021-01-26 17:00 | NUR ---
PATIENT SITTING UP IN BED EATING AND VISITING WITH GRAND DAUGHTER. [facility] SITE UNCHANGED. DENIES PAIN.
--- NOTE | 2021-01-26 17:45 | NUR ---
PATIENT AND GRAND DAUGHTER VERBALIZED UNDERSTANDING OF DISCHARGE INSTRUCTIONS AND PRECAUTIONS. PERMACATH SITE UNCHANGED, NO HEMATOMA, NO BLEEDING. DRESSING D&I. IV SITE DCED WITH CATHETER INTACT. PATIENT TAKEN BY WHEELCHAIR TO CAR WHERE TEO WAS WAITING.
== END 2021-01-26 17:40 | disposition home or self-care (01) ==
LOC: MHTC 12:23
DX: T82.9XXA Unspecified complication of cardiac and vascular prosthetic device, implant and graft, initial encounter (principal); I12.0 Hypertensive chronic kidney disease with stage 5 chronic kidney disease or end stage renal disease; N18.6 End stage renal disease; I48.91 Unspecified atrial fibrillation; E11.22 Type 2 diabetes mellitus with diabetic chronic kidney disease; E03.9 Hypothyroidism, unspecified; E66.9 Obesity, unspecified; Y71.1 Therapeutic (nonsurgical) and rehabilitative cardiovascular devices associated with adverse incidents; Z99.2 Dependence on renal dialysis; Z87.891 Personal history of nicotine dependence; Z88.8 Allergy status to other drugs, medicaments and biological substances; Z88.5 Allergy status to narcotic agent; Z79.4 Long term (current) use of insulin; Z68.34 Body mass index [BMI] 34.0-34.9, adult
CPT/HCPCS: 99152; 99153; C1750; C1769; J1644; J2250; J3010; J7040; J7050; Q9967

== ENCOUNTER 2021-03-30 08:17 | Inpatient (IN) | payer MEDICARE ==
[~2021-03-30] VITALS: Ht 162.6 cm; Wt 89.7 kg
[2021-03-30 09:31] LABS: BASOPHILS ABSOLUTE AUTO 0.12 K/mm3 (0.00-0.23); BASOPHILS PERCENT AUTO 1 % (0-2); EOSINOPHILS ABSOLUTE AUTO 0.18 K/mm3 (0.00-0.68); EOSINOPHILS PERCENT AUTO 1 % (0-6); Hematocrit 36.1 % (33.0-51.0); Hemoglobin 11.7 g/dL (11.5-16.0); IMMATURE GRAN ABSOLUTE AUTO 0.05 K/mm3 (0.00-0.10); IMMATURE GRAN PERCENT AUTO 0 % (0-1); LYMPHOCYTES ABSOLUTE AUTO 2.16 K/mm3 (0.84-5.20); LYMPHOCYTES PERCENT AUTO 16 % (21-46); MONOCYTES PERCENT AUTO 8 % (4-13); Mean Corpuscular HGB 28.8 pg (26.0-34.0); Mean Corpuscular HGB Conc 32.4 g/dL (31.5-36.5); Mean Corpuscular Volume 89 fL (80-100); Mean Platelet Volume 9.9 fL (9.1-12.4); NEUTROPHILS ABSOLUTE AUTO 9.73 K/mm3 (1.96-9.15); NEUTROPHILS PERCENT AUTO 73 % (41-73); Platelet Count 321 K/mm3 (150-400); RDW Coefficient Variation 15.9 % (11.7-14.2); Red Blood Cell Count 4.06 M/mm3 (3.80-5.20); White Blood Cell Count 13.34 K/mm3 (4.00-11.30)
[2021-03-30 09:51] LABS: Albumin, Blood 2.8 g/dL (3.4-5.0); Albumin/Globulin Ratio 0.5 (0.8-1.8); Bilirubin, Total 0.9 mg/dL (0.1-1.0); Bun/Creatinine Ratio 12.1 (12.0-20.0); Calcium, Blood 8.8 mg/dL (8.5-10.1); Creatinine, Blood 3.98 mg/dL (0.40-1.00); Globulin, Blood 6.1 g/dL (2.2-4.0); Potassium, Blood 3.9 mmol/L (3.5-5.5); Total Protein, Blood 8.9 g/dL (6.4-8.2)
[2021-03-30] MEDS ORDERED: ELIQUIS5 M2 PO (09:52)
--- NOTE | 2021-03-30 14:51 | NUR ---
Echocardiogrm completed.
--- NOTE | 2021-03-30 15:10 | NUR ---
INITIAL ASSESSMENT: Report recieved from Madison PRUITT RN. Patient arrived to PCU 13 via gurney and was able to pivot transfer to the bed. Patient is alert and oriented. She denies pain at this time. She states she is short of breath at this time, she also states this has been going on for about the last "month or so." LS Dim in the bases, biox 93% on RA. Patient states she uses a c-pap at home. BT+. PPP. She has a permacath to her right upper chest and a new fistula to her left upper arm bruit/thrill. Patient states they have not been able to use the fistula yet, as it is too new. VSS. HR irreg, she is a-flutter in the low 100s with Cardizem gtt infusing at 10mg/hr. Admission history and medication list complete. Patient denies other needs at this time. Call light in reach, will continue to monitor.
--- NOTE | 2021-03-30 17:43 | NUR ---
Update: Dr. Echevarria has been to see the patient. Bumex 4mg IV given per MD orders. Dr. Echevarria called after coming to see the patient, he would like the patient to be dialyzed tonight. Debbie energy trader called, she will be in her way in. Patient is resting comfortably in bed at this time. Heart rate remains 110-115 on Cardizem at 10mg/hr. Will continue to monitor.
--- NOTE | 2021-03-30 18:29 | NUR ---
Summary: Patient arrived from the ER today to PCU 13. She was admitted from dialysis for shortness of breath and tachycardia. Upon arrival she was noted to be in A-Fib with RVR, her rate has been controlled on a Cardizen GTT at 10 mgm/hr-this is keeping her heart rate in the low 100s. She has been SOB at rest, she is fluid overladed with plans to have dialsis tonight per Dr. Echevarria. Biox WNL on RA. Her daughter brought her C-Pap in from home. She has had no other changes or events this shift. Will report to oncoming RN.
[2021-03-31 04:55] LABS: Hemoglobin 11.3 g/dL (11.5-16.0)
[2021-03-31 05:42] LABS: Albumin, Blood 2.7 g/dL (3.4-5.0); Anion Gap 8 mmol/L (6-16); Blood Urea Nitrogen 34 mg/dL (8-24); Bun/Creatinine Ratio 10.1 (12.0-20.0); CO2, Blood 28 mmol/L (21-32); Calcium, Blood 8.2 mg/dL (8.5-10.1); Chloride, Blood 98 mmol/L (98-108); Creatinine, Blood 3.37 mg/dL (0.40-1.00); Glomerular Filtration Rate 13 (60-); Glucose, Blood 125 mg/dL (70-99); Magnesium, Blood 2.2 mg/dL (1.6-2.4); Phosphorus, Blood 4.6 mg/dL (2.5-4.9); Potassium, Blood 3.5 mmol/L (3.5-5.5); Sodium, Blood 134 mmol/L (136-145); Thyroxine (T4) 7.6 ug/dL (4.8-13.9)
--- NOTE | 2021-03-31 06:08 | NUR ---
SHIFT SUMMARY: VS STABLE T/O SHIFT. CARDIZEM DRIP TITRATED TO 5 MG/HR. DIALYSIS AT 2100 REMOVED 2L - PLAN TO DIALIZE AGAIN 03/31 AROUND 0900. AMBULATES WITH WALKER AND SBA TO THE TOILET. HOME CPAP AT NIGHT. NO ADVERSE EVENTS THIS SHIFT. WILL CONTINUE TO MONITOR AND REPORT TO ONCOMING RN.
--- NOTE | 2021-03-31 08:00 | NUR ---
INITIAL ASSESSMENT: Patient is awake sitting up in bed getting ready to eat breakfast. She denies pain this morning. She is slightly tachypnec at rest, biox 95% on 2l via NC, LS dim in the bases with some faint crackles. HR irreg, a-flutter in the 90s to low 100s-Cardizem gtt infusing at 5 mg/hr. Permacath to right upper chest with opsite dressing CDI. Patient has fistula to left arm + bruit and thrill. Bt hypoactive, pt declines bowel care this am. PPP. Trace edema to BLE. AM meds given with a sip of water, 2 units insulin given for CBG 180. Patient denies other needs at this time. Call light in reach, will continue to monitor.
--- NOTE | 2021-03-31 15:00 | NUR ---
Update: Patient was assisted to the bathroom. Upon assisting her [facility] care this RN noticed she had a pressure ulcer between her buttocks on her coccyx, stage 3 with a small amount of tunneling, it was cleansed. Patient was assisted back to bed. When asked if she has any discomfort she states, "it's a little sore. Will notify MD. Rate remains controlled with PO Cardizem.
--- NOTE | 2021-03-31 15:24 | NUR ---
Dr. Edwards was here to round. Plans for discharge. I talked with her about the patients pressure ulcer and possilbe wound care, home health orders placed. Patient denies needs at this time, will continue to monitor.
--- NOTE | 2021-03-31 17:00 | NUR ---
Discharge: Daughter at bedside for discharge instructions. She was able to visualize the patients pressure ulcer, dressing placed. Patient assisted to get dressed and into the wheelchair. Patient to home via WC with daughter.
== END 2021-03-31 17:21 | disposition home health service (06) | DRG 308 ==
LOC: ER 08:17 → PCU 12:17
PROVIDERS: Internal Medicine Nephrology; Physician Assistant; ADMIT Internal Medicine
DX: I48.0 Paroxysmal atrial fibrillation (principal); N18.6 End stage renal disease; I13.2 Hypertensive heart and chronic kidney disease with heart failure and with stage 5 chronic kidney disease, or end stage renal disease; I50.32 Chronic diastolic (congestive) heart failure; N25.81 Secondary hyperparathyroidism of renal origin; E87.1 Hypo-osmolality and hyponatremia; E11.22 Type 2 diabetes mellitus with diabetic chronic kidney disease; E87.70 Fluid overload, unspecified; E03.9 Hypothyroidism, unspecified; F03.90 Unspecified dementia, unspecified severity, without behavioral disturbance, psychotic disturbance, mood disturbance, and anxiety; D63.8 Anemia in other chronic diseases classified elsewhere; G47.33 Obstructive sleep apnea (adult) (pediatric); E88.09 Other disorders of plasma-protein metabolism, not elsewhere classified; J45.909 Unspecified asthma, uncomplicated; L98.429 Non-pressure chronic ulcer of back with unspecified severity; Z99.2 Dependence on renal dialysis; Z86.718 Personal history of other venous thrombosis and embolism; Z87.891 Personal history of nicotine dependence; Z86.73 Personal history of transient ischemic attack (TIA), and cerebral infarction without residual deficits; Z86.011 Personal history of benign neoplasm of the brain; Z79.01 Long term (current) use of anticoagulants; Z79.899 Other long term (current) drug therapy; Z79.4 Long term (current) use of insulin; Z88.5 Allergy status to narcotic agent; Z88.8 Allergy status to other drugs, medicaments and biological substances
CPT/HCPCS: 36415; 71046; 80053; 80069; 82947; 83690; 83735; 83880; 84436; 84443; 84484; 85014; 85018; 85025; 93005; 93010; 93306; 94660; 94762; A9270; C1751; J1815; J1940

== ENCOUNTER → 2021-05-15 | Outpatient (CLI) | payer MEDICARE ==
[~2021-05-15] MED LIST changes: +Cleocin HCl150 MG PO; +DESV50 PO; +DILT120 PO; +ELIQUIS5 M2 PO
== END | disposition home or self-care (01) ==
LOC: LAB DAV 10:05
DX: R17 Unspecified jaundice (principal)
CPT/HCPCS: 82140

== ENCOUNTER 2021-06-03 01:49 | Day surgery (SDC) | payer MEDICARE ==
[~2021-06-03 01:49] MED LIST changes: -Cleocin HCl150 MG PO; -DESV50 PO; -DILT120 PO
== END 2021-06-03 23:22 | disposition home or self-care (01) ==
LOC: WOUND 01:49
DX: L89.154 Pressure ulcer of sacral region, stage 4 (principal); I13.0 Hypertensive heart and chronic kidney disease with heart failure and stage 1 through stage 4 chronic kidney disease, or unspecified chronic kidney disease; I50.9 Heart failure, unspecified; N18.6 End stage renal disease; E11.22 Type 2 diabetes mellitus with diabetic chronic kidney disease; G47.33 Obstructive sleep apnea (adult) (pediatric); Z99.2 Dependence on renal dialysis
CPT/HCPCS: A9270; G0463

== ENCOUNTER 2021-06-10 02:17 | Day surgery (SDC) | payer MEDICARE | END 2021-06-10 23:27 | disposition home or self-care (01) | LOC: WOUND 02:17 | DX: L89.154 Pressure ulcer of sacral region, stage 4 (principal); I13.2 Hypertensive heart and chronic kidney disease with heart failure and with stage 5 chronic kidney disease, or end stage renal disease; I50.9 Heart failure, unspecified; N18.6 End stage renal disease; E11.22 Type 2 diabetes mellitus with diabetic chronic kidney disease; G47.33 Obstructive sleep apnea (adult) (pediatric) | CPT/HCPCS: G0463 ==

== ENCOUNTER 2021-06-19 01:02 | Day surgery (SDC) | payer MEDICARE | END 2021-06-19 23:00 | disposition home or self-care (01) | LOC: WOUND 01:02 | DX: L89.154 Pressure ulcer of sacral region, stage 4 (principal); T66.XXXD Radiation sickness, unspecified, subsequent encounter; I13.2 Hypertensive heart and chronic kidney disease with heart failure and with stage 5 chronic kidney disease, or end stage renal disease; I50.9 Heart failure, unspecified; N18.6 End stage renal disease; E11.22 Type 2 diabetes mellitus with diabetic chronic kidney disease; G47.33 Obstructive sleep apnea (adult) (pediatric); Z99.2 Dependence on renal dialysis; Z85.048 Personal history of other malignant neoplasm of rectum, rectosigmoid junction, and anus | CPT/HCPCS: A9270 ==

== ENCOUNTER 2021-06-26 01:12 | Day surgery (SDC) | payer MEDICARE | END 2021-06-26 22:52 | disposition home or self-care (01) | LOC: WOUND 01:12 | DX: L89.154 Pressure ulcer of sacral region, stage 4 (principal); L59.8 Other specified disorders of the skin and subcutaneous tissue related to radiation | CPT/HCPCS: A9270; G0463 ==

== ENCOUNTER 2021-08-01 19:19 | Inpatient (IN) | payer MEDICARE ==
[~2021-08-01] VITALS: Ht 162.6 cm; Wt 69.7 kg
[2021-08-01 20:20] LABS: BASOPHILS ABSOLUTE AUTO 0.06 K/mm3 (0.00-0.23); BASOPHILS PERCENT AUTO 0 % (0-2); EOSINOPHILS PERCENT AUTO 2 % (0-6); Hematocrit 32.8 % (33.0-51.0); Hemoglobin 10.7 g/dL (11.5-16.0); IMMATURE GRAN ABSOLUTE AUTO 0.03 K/mm3 (0.00-0.10); IMMATURE GRAN PERCENT AUTO 0 % (0-1); LYMPHOCYTES ABSOLUTE AUTO 5.19 K/mm3 (0.84-5.20); LYMPHOCYTES PERCENT AUTO 39 % (21-46); MONOCYTES PERCENT AUTO 12 % (4-13); Mean Corpuscular HGB 29.3 pg (26.0-34.0); Mean Corpuscular HGB Conc 32.6 g/dL (31.5-36.5); Mean Corpuscular Volume 90 fL (80-100); Mean Platelet Volume 10.3 fL (9.1-12.4); NEUTROPHILS ABSOLUTE AUTO 6.28 K/mm3 (1.96-9.15); NEUTROPHILS PERCENT AUTO 47 % (41-73); Platelet Count 366 K/mm3 (150-400); RDW Coefficient Variation 14.7 % (11.7-14.2); Red Blood Cell Count 3.65 M/mm3 (3.80-5.20); White Blood Cell Count 13.36 K/mm3 (4.00-11.30)
[2021-08-01 20:40] LABS: Albumin, Blood 1.6 g/dL (3.4-5.0); Albumin/Globulin Ratio 0.2 (0.8-1.8); Bilirubin, Total 1.1 mg/dL (0.1-1.0); Bun/Creatinine Ratio 7.5 (12.0-20.0); Calcium, Blood 9.2 mg/dL (8.5-10.1); Creatinine, Blood 4.54 mg/dL (0.40-1.00); Globulin, Blood 6.9 g/dL (2.2-4.0); Magnesium, Blood 2.3 mg/dL (1.6-2.4); Potassium, Blood 3.7 mmol/L (3.5-5.5); Total Protein, Blood 8.5 g/dL (6.4-8.2)
[2021-08-01 22:08] LABS: Source, Urine Straight Cath
[2021-08-01 22:14] LABS: Bilirubin, Urine Neg (Neg); Blood, Urine 5+ (Neg); Glucose Qualitative, Urine Neg (Neg); Ketones, Urine Neg (Neg); Leukocyte Esterase, Urine 3+ (Neg); Nitrite, Urine Neg (Neg); Protein, Urine 4+ (Neg); Urobilinogen, Urine NORM (Normal)
[2021-08-01 22:23] LABS: Appearance, Urine Turbid (Clear); Color, Urine Yellow (P-Yellow)
[2021-08-01 22:24] LABS: Bacteria Many /hpf; Red Blood Cells, Urine 0-2 /hpf (0-2); Squamous Epithelial Cells Not Seen /hpf (Few); White Blood Cells, Urine TNTC /hpf (0-5)
[2021-08-02] MEDS ORDERED: DILT120 PO (03:10)
[2021-08-02] MEDS ORDERED: Cleocin HCl150 MG PO (03:10)
[2021-08-02] MEDS ORDERED: DESV50 PO (03:11)
[2021-08-02 04:17] LABS: Base Excess Venous 5.5 mmol/L; Bicarbonate Venous 29.9 mmol/L (24.0-30.0); PCO2 Venous 23.6 mmHg (38-42); PO2 Venous 88.1 mmHg (38-42)
[2021-08-02 04:18] LABS: pH Blood Venous 7.65 (7.34-7.37)
--- NOTE | 2021-08-02 04:20 | NUR ---
PT ARRIVED FROM ED AROUND 299, SHE IS AWAKE AND ANSWERING QUESTIONS, SHE IS INTERMITTENTLY CONFUSED IN HER ANSWERS, IE TAKES THE QUESTION AND MAKES IT THE ANSWER. SHE ANSWERED THAT IT WAS "FEBRUARY", WHEN TOLD NO, SHE THEN SAID, "WELL THEN IT'S JANUARY." SHE KNEW IT WAS 2021, COULDN'T NAME THE PRESIDENT. THEN LATER WAS ABLE TO RECALL WHO THE PRESIDENT WAS. DAUGHTER WITH HER DURING MOST OF QUESTIONING. PT APPEARS VERY TIRED, ADMITS THAT SHE IS. ATTEMPTS FOR BLOOD DRAW MULTIPLE TIMES. FISTULA PRESENT IN LEFT UPPER ARM, RIGHT CHEST WITH DIALYSIS ACCESS SHEATH. BUTTOCKS WITH DEEP, TUNNELING COCCYX WOUND, PICTURES TAKEN, CALCIUM ALGENATE PACKING WITH FOAM DRESSING ON THE OUTSIDE. DAUGHTER HAS NOW GONE HOME.
[2021-08-02 04:22] LABS: BASOPHILS ABSOLUTE AUTO 0.07 K/mm3 (0.00-0.23); BASOPHILS PERCENT AUTO 1 % (0-2); EOSINOPHILS ABSOLUTE AUTO 0.15 K/mm3 (0.00-0.68); EOSINOPHILS PERCENT AUTO 1 % (0-6); Hematocrit 30.6 % (33.0-51.0); IMMATURE GRAN ABSOLUTE AUTO 0.08 K/mm3 (0.00-0.10); IMMATURE GRAN PERCENT AUTO 1 % (0-1); LYMPHOCYTES ABSOLUTE AUTO 5.04 K/mm3 (0.84-5.20); LYMPHOCYTES PERCENT AUTO 34 % (21-46); MONOCYTES ABSOLUTE AUTO 1.42 K/mm3 (0.16-1.47); MONOCYTES PERCENT AUTO 10 % (4-13); Mean Corpuscular HGB 29.6 pg (26.0-34.0); Mean Corpuscular HGB Conc 32.7 g/dL (31.5-36.5); Mean Corpuscular Volume 91 fL (80-100); Mean Platelet Volume 10.1 fL (9.1-12.4); NEUTROPHILS ABSOLUTE AUTO 8.11 K/mm3 (1.96-9.15); NEUTROPHILS PERCENT AUTO 55 % (41-73); Platelet Count 330 K/mm3 (150-400); RDW Coefficient Variation 14.9 % (11.7-14.2); RDW Standard Deviation 48.8 fL (35.1-46.3); Red Blood Cell Count 3.38 M/mm3 (3.80-5.20); White Blood Cell Count 14.87 K/mm3 (4.00-11.30)
[2021-08-02 04:41] LABS: Albumin, Blood 1.5 g/dL (3.4-5.0); Albumin/Globulin Ratio 0.2 (0.8-1.8); Bilirubin, Total 1.3 mg/dL (0.1-1.0); Bun/Creatinine Ratio 7.8 (12.0-20.0); Calcium, Blood 8.4 mg/dL (8.5-10.1); Creatinine, Blood 4.72 mg/dL (0.40-1.00); Globulin, Blood 6.3 g/dL (2.2-4.0); Potassium, Blood 4.1 mmol/L (3.5-5.5); Total Protein, Blood 7.8 g/dL (6.4-8.2)
[2021-08-02 05:28] LABS: International Normalized Ratio 1.19; Prothrombin Time Results 12.4 Sec (9.7-11.5)
--- NOTE | 2021-08-02 06:41 | NUR ---
CARLITA HAS BEEN TRYING TO SLEEP FOR THE LAST HOUR OR SO SINCE THE POWER GLIDE PLACEMENT. SHE IS ON THE CPAP AND SHE IS DROPPING HER SATS TO THE LOW 80S, BLED IN 4L O2 AT THIS TIME WHILE SHE IS SLEEPING. CONTINUES WITH FLUIDS AT 50ML/HR, NO URINE OUTPUT THUS FAR. CONTINUES TO BE COOPERATIVE, PLAN FOR DIALYSIS LATER TODAY. WILL CONTINUE TO MONITOR AND REPORT TO NEXT SHIFT WHEN ABLE.
--- NOTE | 2021-08-02 11:58 | NUR ---
New referral received. Update on current status and concerns obtained from pt's RN and Dr. Owusu and greg at bedside during my visit. Pt remained asleep. She had purposeful movement in scratching her head but did not open eyes or participate in the conversation. Pt has been ESRD, dialysis dependent x 2 years. She has had an abd mass/malignancy that pt has opted not to pursue tx of. 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 I did not have the opportunity to review EMR prior to my visit and hx obtained from francoise and providers. Francoise is clear that she and her mom do not want to discontinue dialysis at this time. Planned with francoise to cont advanced care planning conversation over the next couple of days. When pt is awake, will see how she is feeling and what her goals are at this time. Francoise knows that EOL care approaching. She does not feel certain that she would be able to provide EOL care to her mom when the time comes. I told her we could talk about options for care at that time. Contact info and card given to francoise so she could reach [facility] at any time in the future. Plan to follow t/o hospital stay. UPdate on visit given to pt's nurse.
--- NOTE | 2021-08-02 17:12 | NUR ---
SHIFT SUMMARY NO ACUTE CHANGES THIS SHIFT. PT DROWSEY AND SLEEPING MOST OF THIS SHIFT. WHEN AWAKE PT IS CONFUSED, BUT IS ABLE TO ANSWER SOME SIMPLE QUESTIONS APPROPRIATELY. PT NEEDS FREQUENT REORIENTATION. PT ALTERNATED BETWEEN ROOM AIR WHEN AWAKE, AND CPAP WITH 4L O2 BLEED IN WHILE SLEEPING. PT HAS TURNED SELF SIDE TO SIDE INDEPENDENTLY AND WITH ASSISTANCE. VITAL SIGNS REMAIN STABLE. SBP 80-100'S. POWERGLIDE TO PETER REMAINS C/D/I WITH NS INFUSING AT 50 ML/HR. DIALYSIS CATH TO RIGHT UPPER CHEST REMAINS C/D/I. BILLIARY DRAING REMAINS C/D/I WITH MINIMAL OUTPUT THIS SHIFT. MULTIPLE FAMILY MEMBERS AT BEDSIDE THIS SHIFT. AFTER DISCUSSION ABOUT PLAN OF CARE AND PROGNOSIS WITH DR MCCARTHY AND PALLIATIVE CARE, FAMILY ELECTED TO MAKE PT LIMITED CODE WITH MEDS ONLY. WILL CONTINUE TO MONITOR AND REPORT OFF TO ONCOMING RN.
--- NOTE | 2021-08-02 20:04 | NUR ---
ASSUMPTION OF CARE: RECEIVED REPORT FROM SUNDAY, NUCLEAR OPERATIONS SPECIALIST. PATIENT HAD PULLED POWERGLIDE OUT. WRAPPED ARM WITH GAUZE. NOTED PERMACATH IS NOT PIGTAILED OR SUTURED DOWN. BILI DRAIN DRAINING TO GRAVITY. PATIENT FIDGETY WHEN AWAKE AND OTHERWISE LETHARGIC. PATIENT FELL ASLEEP AND CURRENTLY HAS CPAP WITH 4L BLEED. EXTREMETIES ARE COLD AND SPO2 MONITOR NOT READING WELL.
--- NOTE | 2021-08-02 23:16 | NUR ---
NEW ORDERS: SPOKE WITH HOSPITALIST FOR RESTRAINT ORDER D/T PATIENT PULLING OUT POWERGLIDE AND PULLING OTHER LINES. RECEIVED NEW ORDERS.
--- NOTE | 2021-08-03 03:08 | NUR ---
DRESSING CHANGE AT THIS TIME. MEDIPLEX WAS SATURATED. INSERTED NEW CALCIUM ALGINATE INTO WOUND AND COVERED WITH NEW MEDIPLEX.
[2021-08-03 03:51] LABS: BASOPHILS ABSOLUTE AUTO 0.05 K/mm3 (0.00-0.23); BASOPHILS PERCENT AUTO 0 % (0-2); EOSINOPHILS ABSOLUTE AUTO 0.19 K/mm3 (0.00-0.68); EOSINOPHILS PERCENT AUTO 2 % (0-6); Hemoglobin 9.5 g/dL (11.5-16.0); IMMATURE GRAN ABSOLUTE AUTO 0.05 K/mm3 (0.00-0.10); IMMATURE GRAN PERCENT AUTO 0 % (0-1); LYMPHOCYTES ABSOLUTE AUTO 3.16 K/mm3 (0.84-5.20); LYMPHOCYTES PERCENT AUTO 26 % (21-46); MONOCYTES ABSOLUTE AUTO 1.21 K/mm3 (0.16-1.47); MONOCYTES PERCENT AUTO 10 % (4-13); Mean Corpuscular HGB 29.7 pg (26.0-34.0); Mean Corpuscular HGB Conc 32.8 g/dL (31.5-36.5); Mean Corpuscular Volume 91 fL (80-100); Mean Platelet Volume 9.9 fL (9.1-12.4); NEUTROPHILS ABSOLUTE AUTO 7.45 K/mm3 (1.96-9.15); NEUTROPHILS PERCENT AUTO 62 % (41-73); Platelet Count 327 K/mm3 (150-400); RDW Coefficient Variation 15.1 % (11.7-14.2); RDW Standard Deviation 50.1 fL (35.1-46.3); White Blood Cell Count 12.11 K/mm3 (4.00-11.30)
[2021-08-03 04:20] LABS: Albumin, Blood 1.6 g/dL (3.4-5.0); Albumin/Globulin Ratio 0.3 (0.8-1.8); Bun/Creatinine Ratio 7.1 (12.0-20.0); Calcium, Blood 8.8 mg/dL (8.5-10.1); Creatinine, Blood 6.07 mg/dL (0.40-1.00); Magnesium, Blood 2.7 mg/dL (1.6-2.4); Phosphorus, Blood 6.8 mg/dL (2.5-4.9); Potassium, Blood 3.4 mmol/L (3.5-5.5); Total Protein, Blood 7.6 g/dL (6.4-8.2)
--- NOTE | 2021-08-03 04:47 | NUR ---
AM LAB: POTASSIUM DOWN TO 3.4 FROM 4.1. CALLED HOSPITALIST FOR ORDERS. WILL MEDICATE PER EMAR.
--- NOTE | 2021-08-03 06:26 | NUR ---
SHIFT SUMMARY: PATIENT A&O X1 WHEN AWAKE. WHEN UNRESTRAINED PATIENT WOULD PULL AT LINES AND SLIDE OUT OF BED. O2 SATS >92% ON RA/CPAP. BILIARY DRAINING TO GRAVITY. NS RUNNING PER EMAR. KCL 20 MEQ IV RUNNING. WOUND CONSULT HAS BEEN ENTERED FOR COCCYX WOUND. PATIENT RESTING IN BED AND PLAN IS FOR DIALYSIS TODAY. WILL CONTINUE TO MONITOR AND REPORT TO ONCOMING RN.
--- NOTE | 2021-08-03 08:45 | NUR ---
INITIAL ASSESSMENT PATIENT LETHARGIC. SLEEPING UPON ENTERING ROOM. PATIENT ORIENTED TO SELF, FAMILY, TOWN, AND FOLLOWING SIMPLE COMMANDS. PATIENT DID NOT KNOW SHE WAS IN THE HOSPITAL OR WHY. PATIENT DID NOT KNOW DATE. FLAT AFFECT NOTED. PATIENT WEAK BUT ABLE TO MOVE ALL EXTREMITIES. PATIENT AFEBRILE. NO SIGNS OF PAIN NOTED. LUNGS DIMINISHED. PATIENT RA WHILE AWAKE. PATIENT ON 1 L NC WITH DIALYSIS AND ON CPAP WITH 4 L BLEED IN WITH SLEEP (HOME O2). SHALLOW BREATHS NOTED. PATIENT IN A. FLUTTER, HR IN THE LOW 100S. SBP LOW 100S TO 1-TEENS. HYPOACTIVE BOWEL SOUNDS NOTED. 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 BEDSIDE SWALLOW EVAL PERFORMED THIS AM AND PATIENT PASSED. PATIENT TOOK MORNING MEDS ONE AT A TIME WITH NO PROBLEMS. PATIENT OLIGURIC PER FAMILY; DIALYSIS PATIENT. ATTENDS IN PLACE. DIALYSIS CATH TO R UPPER CHEST. FISTULA TO L ARM. SCATTERED BRUISES NOTED. PRESSURE ULCER TO COCCYX; MEPILEX IN PLACE. SKIN COOL AND PALE. NS TKO. FAMILY AT BEDSIDE. BED LOW, CALL LIGHT IN REACH. WILL CONTINUE TO MONITOR PATIENT FREQUENTLY THROUGHOUT SHIFT.
--- NOTE | 2021-08-03 10:28 | NUR ---
WOUND PHOTO AND ASSESSMENT IN HARD CHART. WOUND CARE ORDERS IN [facility].
--- NOTE | 2021-08-03 12:30 | NUR ---
PATIENT AFEBRILE. NO COMPLAINTS OF PAIN. MOSTLY SLEEPING. DID EAT A LITTLE BIT OF LUNCH. HR IN THE 120S. SBP 90S TO 120S. BLOOD SUGAR 109; NO COVERAGE INDICATED. NO OTHER ACUTE CHANGES TO NOTE ON AT THIS TIME. FAMILY AT BEDSIDE.
[2021-08-03 12:47] LABS: Vancomycin, Random 2.5 ug/mL
--- NOTE | 2021-08-03 16:33 | NUR ---
SHIFT SUMMARY PATIENT SLEPT MOST OF THE SHIFT. PATIENT REMAINED ALERT AND ORIENTED TO SELF, FAMILY, TOWN, AND FOLLOWING SIMPLE COMMANDS. PATIENT REMAINED WITH FLAT AFFECT. PATIENT REMAINED WEAK BUT ABLE TO MOVE ALL EXTREMITIES AND ASSIST WITH REPOSITIONING. PATIENT REMAINED AFEBRILE. PATIENT REMAINED ON EITHER RA OR 1 L NC. PATIENT REMAINED IN A. FLUTTER, HR LOW 100S TO 130S. SBP 80S TO 140S. NO BM THIS SHIFT. NO URINE OUT THIS SHIFT. ATTENDS REMAIN CLEAN AND DRY. WOUND CARE NURSE CAME, TOOK PICTURES OF COCCYX WOUND, CLEANSED AND DRESSED. NO OTHER CHANGES TO SKIN NOTED. PATIENT REPOSITIONED Q2H. NS REMAINED TKO. DIALYSIS PERFORMED THIS SHIFT; 1 L TAKEN OFF PER RADIO MECHANIC APPRENTICE. BLOOD SUGAR 109 AT NOON CHECK. FAMILY REMAINED AT BEDSIDE ALL SHIFT. PATIENT BEING TRANSFERRED TO MEDICAL FLOOR, ROOM 325 AT THIS TIME. FAMILY FOLLOWING. ALL BELONGINGS SENT WITH PATIENT.
--- NOTE | 2021-08-03 18:09 | NUR ---
CALLED DR HERNANDEZ- PT CURRENTLY RESTRAINED, PER FAMILY SHE PULLED OUT A PG LAST NIGHT. RESTRAINTS ARE NEEDED TO PROTECT LINES AND TUBES PT IS VERY CONFUSED AND HER HANDS ARE FIDGETTY. PER REPORT PT IS ON CPAP AT HS WITH A 4L BLEED IN. PER HOSPITAL POLICY PT CAN NOT BE IN RESTRAINT ON CPAP W/O BEING IN ICU. RT YAAKOV ARRIVED TO SET UP CPAP NOTED THE RESTRAINTS AND INFORMED THIS RN OF THE ISSUE. PER DR HERNANDEZ THE PT SHOULD BE TRANSFERED BACK TO ICU FOR NEEDED TREATMENT (CPAP AT HS) RESTRAINTS TO PROTECT LINES AND TUBES.
--- NOTE | 2021-08-03 19:36 | NUR ---
SHIFT SUMMARY- ALL CHARGE RNS NOTIFIED OF THE NEED FOR A BED IN ICU FOR THIS PT. PASSED ON TO NIGHT RN AND NIGHT BUSINESS INVESTOR IN REPORT. ORDER PLACED IN ORDER MANAGEMENT. PT WRIST RESTRAINTS WERE RELEASED WHEN STAFF WERE ATTEMPTING TO BOOST THE PT AND SHE BEGAN GRABBING AT LINES AND TUBES. RESTRAINTS WERE REPLACED AT THAT TIME AFTER THE REPOSITION. PT LAYING IN BED SLEEPING AT THE TIME OF BEDSIDE REPORT PT DAUGHTER LEFT THE BEDSIDE AFTER REPORT.
[2021-08-04 05:17] LABS: Hematocrit 29.9 % (33.0-51.0); Hemoglobin 9.7 g/dL (11.5-16.0)
[2021-08-04 05:53] LABS: Albumin, Blood 1.5 g/dL (3.4-5.0); Anion Gap 11 mmol/L (6-16); Blood Urea Nitrogen 22 mg/dL (8-24); Bun/Creatinine Ratio 5.3 (12.0-20.0); CO2, Blood 28 mmol/L (21-32); Calcium, Blood 8.7 mg/dL (8.5-10.1); Chloride, Blood 96 mmol/L (98-108); Creatinine, Blood 4.18 mg/dL (0.40-1.00); Glomerular Filtration Rate 10 (60-); Glucose, Blood 157 mg/dL (70-99); Magnesium, Blood 2.4 mg/dL (1.6-2.4); Phosphorus, Blood 4.8 mg/dL (2.5-4.9); Potassium, Blood 3.4 mmol/L (3.5-5.5); Sodium, Blood 135 mmol/L (136-145)
--- NOTE | 2021-08-04 06:33 | NUR ---
SHIFT SUMMARY LETHARGIC, RESPONDS TO PAINFUL STIMULI. BILI DRAIN TO LUQ DRAINING CLEAR YELLOW OUTPUT. FISTULA TO DANIEL, PERMACATH TO RCW. SOFT BILATERAL WRIST RESTRAINTS IN PLACE TO PROTECT LINES/TUBES. PT AFIB SUSTAINING 130'S, OBTAINED PRN 5MG IV LOPRESSOR ORDER WITH GOOD EFFECT. CURRENTLY AFIB LOW 100'S. BP'S CONTINUE TO BE SOFT. BED IN LOWEST POSITION WITH CALL LIGHT IN REACH. WILL CONTINUE TO MONITOR AND REPORT TO ONCOMING RN.
[2021-08-04 09:25] LABS: PCO2 Arterial 41.5 mmHg (35-45); PO2 Arterial 82.9 mmHg (80-100); pH Blood Arterial 7.48 (7.35-7.45)
--- NOTE | 2021-08-04 12:00 | NUR ---
COMFORT CARE NOTE- PT SWITCHED TO COMFORT CARE. S&S OF MINIMAL DISCOMFORT, ATTENDS CHANGE DONE BY STOVE INSTALLER AND OPERATIONS LEAD, WOUND DRESSINGS CHANGED. PT REPOSITIONED AT THAT TIME. PT SEEMS CONTROLLED.
--- NOTE | 2021-08-04 13:00 | NUR ---
COMFORT CARE NOTE- PT TRYING TO GET OUT OF BED, SAYING SHE NEEDS TO GET IN THE CHAIR. PT CONFUSED AND SEEMS TO BE A LITTLE DELERIUS. MEDICATED WITH PRN FENTANYL FOR COCCYX PAIN, PT RELAXED AFTER A FEW MINUTES, FAMILY ASSISTED WITH REPOSITIONING THE PT TO A FLOATED POSITION.
--- NOTE | 2021-08-04 13:11 | NUR ---
Summary of two visits today - Joint visit made this am around 0930 with to update family and discuss options for care per request of Francoise Herrera. 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 Francoise and gdau at bedside and appropriately tearful. Francoise had good questions, which were answered to her satisfaction. Francoise attempted to elicit input from pt and some decision re: treatment vs. comfort care. Pt repeated "go straight ahead" in response to francoise several times. Francoise and determined that pt was unable to process information or make a decision at this time. Francoise would like to discuss with her siblings and have me return later today to check in. I told her RN can page me earlier if she would like or if family decision made. Later in the morning, I was paged to return. Francoise tearfully tells me she would like comfort care initiated and that siblings are in agreement. Two grandchildren at bedside now also. Discussed pt's needs and medications with RN and . 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 See new orders obtained by VO and entered. Hospice order entered with notes for CM. I did not discuss hospice placement further today. Dialysis unit notified of transition to comfort care per [facility] RN. Francoise has repeatedly stated that she could not provide EOL care for her mom at her home. If pt is able to be transferred to another setting she will need to know alternative options for placement. Pt's mentation and LOC is decreased markedly from yesterday per francoise.
--- NOTE | 2021-08-04 14:00 | NUR ---
COMFORT CARE NOTE- FENTANYL SEEMED TO WORK WELL FOR THIS PT. PAIN SEEMS WELL MANAGED AT THE TIME OF ASSESSMENT AND FAMILY IS PLEASED WITH HER CARE, SAYING SHE SEEMS COMFORTABLE AT THIS TIME. WILL CTM.
--- NOTE | 2021-08-04 15:51 | NUR ---
COMFORT CARE NOTE- PT TRANSFERED TO ROOM 308 FOR THE LARGER ROOM. PT APPEARS COMFORTABLE AT THIS TIME NO GRIMACE NOTED WHEN SHE WAS MOVED. WILL CTM. SPOKE TO PALLIATIVE CARE FENTANYL WAS EFFECTIVE FOR THE PT FOR PAIN MANAGEMENT. NEW ORDER FOR FENTANYL PATCH IN EMAR NOW. WILL ADMINISTER SHORTLY.
--- NOTE | 2021-08-04 16:17 | NUR ---
F/u comfort care visit made after pt moved to room 308. Francoise and carly present. Pt sleeping soundly and appears very comfortable in left sidelying position. Reviewed comfort care medications and plan with francoise. She expressed appreciation several times of mom's care here. Francoise verbalized understanding that now that her mom is much more comfortable she may be awake less often. She plans to stay the night and gdau may also. Brief case conf with pt's RN to polo on my visit and discuss new order for duragisic patch. [facility] to visit daily while pt remains in hospital.
--- NOTE | 2021-08-04 18:14 | NUR ---
SHIFT SUMMARY- PT STATUS CHANGED TO DNR AND COMFORT CARE EARLIER IN THE SHIFT. DRESSINGS ON COCCYX WERE CHANGED D/T BEING SOILED EARLIER IN THE SHIFT. PT IS CONFUSED AND DELERIOUS, FAMILY STATED SHE WAS EXPRESSING NAUSEA AND SHE WAS MEDICATED WITH IV ZOFRAN. THE PT SEEMED A LITTLE AGGITATED BUT MANAGEABLE FOR THE FAMILY AT THIS TIME. OFFERED IV ATIVAN AND FAMILY DECLINED THE PT WAS EATING A MAGIC CUP WITH SOME GUSTO. FAMILY WILL CALL WHEN THEY ARE READY FOR ATIVAN, WILL REEVALUATE ON NEXT ROUNDS. WILL PASS ALL ON IN BEDSIDE REPORT TO NIGHT RN.
--- NOTE | 2021-08-05 04:31 | NUR ---
SHIFT SUMMARY NO ACUTE CHANGES TO PT CONDITION DURING THIS SHIFT. PT MEDICATED WITH FENTANYL AND ATIVAN NEEDED FOR PAIN AND COMFORT. FAMILY STAYED AT BEDSIDE ALL EVENING AND DAUGHTER AND GRANDDAUGHTER STAYED THE NIGHT WITH HER. BILIARY DRAIN IN TACT AND DRAINING YELLOWISH/GREEN FLUID. DRESSING CHANGED LAST NIGHT. CALL LIGHT WITHIN REACH OF FAMILY AND THEY WILL CALL IF NEEDED.
--- NOTE | 2021-08-05 05:22 | NUR ---
LAB CAME TO DRAW PT'S LAB WORK. PT ON COMFORT CARE AND FAMILY REFUSED TO HAVE BLOOD DRAWN.
--- NOTE | 2021-08-05 07:00 | NUR ---
ASSUMED CARE OF PT- REPORT COMPLETED WITH NIGHT RN. PT DAUGHTER IN BED WITH HER, WHEN SHE MOVED THE PT BECAME AGITATED FOR A FEW MINUTES AND APPEARED TO BE PAINFUL, HOWEVER FAMILY REPOSITIONED HER TO LEFT SIDE LYING AND SHE NO LONGER APPEARED UNCOMFORTABLE AND WAS SLEEPING SOUNDLY. WILL CTM AND MEDICATE NEEDED.
--- NOTE | 2021-08-05 09:43 | NUR ---
COMFORT CARE NOTE- PT SLEPING SOUNDLY NO S&S OF DISTRESS RESP E/U ON ROOM AIR. NO S&S OF PAIN NOTED AT THIS TIME, FAMILY WAS ASKED TO CALL IF THE PT DISPLAYS ANY SIGNS OF DISCOMFORT.
--- NOTE | 2021-08-05 09:57 | NUR ---
CALLED DR GRAVES- MORNING LABS WERE ORDERED. THIS PT HAS BEEN SWITCHED TO COMFORT CARE. DR GRAVES IS NOW AWARE. LABS CANCELED PER DR HERNANDEZ.
--- NOTE | 2021-08-05 11:00 | NUR ---
COMFORT CARE NOTE- PT WAS GIVEN PAIN MEDICATION IN ADVANCE PRIOR TO WOUND CARE DRESSING CHANGE, BED BATH AND REPOSITION. PT TOLLERATED ALL WELL, AND WAS REPOSITIONED TO RIGHT SIDE LYING. FAMILY HAD REMOVED THE ABD BINDER LAST NIGHT THAT WAS PROTECTING LINES AND TUBES, PT PULLED ON HER BILIARY DRAIN A LITTLE AND IT LEAKED SOME, DRESSING WAS CHANGED LAST NIGHT C/D/I AT THE TIME OF BED BATH.
--- NOTE | 2021-08-05 13:00 | NUR ---
COMFORT CARE NOTE- PT RESTLESS AND A BIT AGITATED, MEDICATED WITH ATIVAN PER FAMILY REQUEST. REPOSITIONED AND PILLOWS PLACED AGAIN.
--- NOTE | 2021-08-05 15:00 | NUR ---
COMFORT CARE NOTE- PT FACE GRIMMACING AND SHE SEEMS RESTLESS, MEDICATED WITH IV FENTANYL SPOKE TO PALLIATIVE CARE RN AND SHE RECOMENDED THE USE OF PHENEGREN SUPPOSITORY TO AID IN PT COMFORT. WILL DO THIS THE NEXT TIME PT NEEDS TO BE CHANGED, REPOSITIONED OR MEDICATED.
--- NOTE | 2021-08-05 17:00 | NUR ---
COMFORT CARE NOTE- PT APPEARS COMFORTABLE FAMILY HAD ALREADY ASSISTED THE PT TO RETURN TO HER LEFT SIDE. THIS IS WHERE THE PT IS MOST COMFORTABLE, SHE IS DECLINING TO BE REPOSITIONED, AND THE FAMILY IS IN AGREEMENT.
--- NOTE | 2021-08-05 19:51 | NUR ---
SHIFT SUMMARY- PT HAS HAD SOME DISCOMFORT T/O THE DAY, MEDICATED FOR COMFORT T/O THE DAY. PHENEGREN SUPPOSITORY RECIEVED FROM PHARMACY AT SHIFT CHANGE. PASSED ON IN BEDSIDE REPORT FOR THE NIGHT RN TO ADMINISTER (PER RECOMENDATION OF PALLIATIVE CARE RN) WELL PAIN OR ANXIETY MEDICATION. THE PT IS STARTING TO GET A BIT AGITATED AT SHIFT CHANGE, BILLIARY DRAIN DRESSING SOILED THIS EVENING AND WAS CHANGED JUST PRIOR TO BEDSIDE REPORT. NIGHT RN IS AWARE.
--- NOTE | 2021-08-06 05:07 | NUR ---
SHIFT SUMMARY NO ACUTE CHANGES TO PT CONDITION. PT CONTINUES TO BE ON COMFORT CARE. FAMILY AT BEDSIDE. PT CONTINUES TO GET FENTANYL AND ATIVAN FOR PAIN NECESSARY PER EMAR. CALL LIGHT WITHIN FAMILY REACH.
--- NOTE | 2021-08-06 07:45 | NUR ---
PT IN BED, NON RESPONSIVE TO STIMULI AT THIS TIME. PAINAD IS 0/10 WITH REPOSITIONING AND CARES. BREATHING IS E/U AT THIS TIME. NO SIGNS OF DISTRESS. 2 FAMILY MEMBERS PRESENT AT TIME OF CARES. FAMILY EDUCATED ON REASONS PT IS REPOSITIONED THEY DID NOT WANT HER REPOSITIONED. FAMILY VU AND ALLOWED PT TO BE REPOSITIONED. REFILL FOR COMFORT CARE CART COMPLETED.
--- NOTE | 2021-08-06 11:35 | NUR ---
Comfort Care Visit Pt resting in bed with her eyes closed. Pt appears comfortable with no S/S of distress at this time. Pt's family at bedside. Offered therapeutic listening and answered questions. Family requesting some comfort medications be offered more frequently. Dr Ronquillo arrives and will consider family's request. Spoke with Primary RN Hoda and discussed case. Palliative Care will remain available.
--- NOTE | 2021-08-06 18:41 | NUR ---
SHIFT SUMMARY: PT DROWSY AND UNRESPONSIVE MOST OF THE DAY. PT DID AWAKEN TO VERBAL STIMULI THIS AM AND WAS ABLE TO ANSWER YES NO QUESTIONS REGARDING COMFORT. PT FAMILY IN WITH PT MOST OF THE DAY. PT TOLERATING POSITIONING WITHOUT WINCING OR MOANING. NO URINE OUTPUT ALL DAY. PT IV CONTINUES TO WORK WELL. WOUND CARE COMPLETED TO COCCYX. WOUND CLEANSED WITH WOUND CLEANSER AND PATTED DRY. CALCIUM ALGINATE APPLIED TO WOUND AND COVERED WITH MEPILEX. PT TOLERATED WOUND CARE WELL.
--- NOTE | 2021-08-06 19:28 | NUR ---
FAMILY AT BEDSIDE PT IS ASLEEP, LOOKS RELAXED NO S/S OF DISTRESS. FAMILY DENIES ANY NEEDS DURING BEDSIDE REPORT.
--- NOTE | 2021-08-07 05:10 | NUR ---
PT IS ON COMFORT CARE SURROUNDED BY FAMILY, RESPONDS VERY LITTLE; GROANS WHEN IN PAIN AND PULLS ON BLANKET. MEDICATED FOR PAIN THIS SHIFT. BILIARY DRAIN TO LEFT ABD, DIALYSIS CATH AND PETER POWERGLIDE. COCCYX WOUND. PER REPORT PT WILL CHOKE ON ANYTHING ORAL.
--- NOTE | 2021-08-07 09:14 | NUR ---
Comfort Care Visit Pt resting in bed with her eyes closed. Pt appears comfortable with no S/S of distress at this time. Family at bedside. Offered therapeutic listening and supportive conversation. Family expresses appreciation and reports no concerns at this time. Palliative Care will remain available.
--- NOTE | 2021-08-07 16:04 | NUR ---
MEDICATED FOR ANXIETY AT 1515. FAMILY AT THE BEDSIDE. WOUND CARE PROVIDED
--- NOTE | 2021-08-07 20:59 | NUR ---
MANY FAMILY GATHERED IN PT ROOM, FAMILY HAS JUST TURNED PT, PT LOOKS PEACEFUL ON LEFT SIDE, dRAIN CHECKED FOR LEAKAGE, FAMILY DENIES ANY NEEDS AT THIS TIME.
--- NOTE | 2021-08-08 05:38 | NUR ---
PT IS ON COMFORT CARE, MANY FAMILY MEMBERS IN THE ROOM T/O SHIFT. PT MEDICATED FOR PAIN AND ANXIETY THIS SHIFT, PT PREFERS TO LAY ON LEFT SIDE, PER FAMILY. LABORED IRREGULAR BREATHING AT THIS TIME.
--- NOTE | 2021-08-08 14:51 | NUR ---
PT FAMILY C/O PT BEGINNING TO START MOVING ABOUT. REQUEST MED FOR PAIN. DONE
--- NOTE | 2021-08-08 17:32 | NUR ---
FAMILY CALLED ME TO ROOM HAS HAD SEIZURE ACTIVITY. I CAME IN ON LAST MOMEMTS OF ACTIVITY. DID MEDICATE WITH ATIVAN. [facility] CAME TO ROOM. PT NOW RELAXED. BREATHING SLOWER.
--- NOTE | 2021-08-08 18:44 | NUR ---
PT NONVERBAL FOR ME THIS SHIFT.HAD SOME SEIZURE ACTIVITY THIS AFT. ATIVAN GIVEN AND NEW ORDERS FOR VALIUM ALSO STARTED TONITE. PT RESTING AT THIS TIME. FAMILY AT BEDSIDE ALL T/O DAY. ANY REQUESTS BY FAMILY FOR PATIENT CARE HAVE BEEN ADDRESSED. TURNED AND ADJUSTED T/O DAY FOR PT COMFORT. WOUND DRESSING CHANGED THIS AFT. NO OTHER CONCERNS NOTED. BED IN LOW POSITION, CALL LITE IN REACH, FAMILY CALLS FOR NEEDS.
--- NOTE | 2021-08-08 19:59 | NUR ---
Pt had seizure and is shoing some terminsl aggitation. family at bedside greiving. notified physician of change incondition and modified medications.
--- NOTE | 2021-08-09 05:34 | NUR ---
PT IS ON COMFORT CARE SURROUNDED BY FAMILY, REPOSITIONING PER FAMILY. PT MEDICATED FOR PAIN, IS NONVERBAL BUT BECOMES RESTLESS WITH FURROWED BROW WHEN IN PAIN. BILIARY DRAIN, COCCYX WOUND, POSITIONAL PETER POWERGLIDE.
--- NOTE | 2021-08-09 07:00 | NUR ---
PT RESTING, COMFORTABLY. NOT TALKING, RESP IRREGULAR. MUCH FAMILY AT BEDSIDE AND IN ROOM. DENIES NEEDS AT THIS TIME. BED IN LOW POSITION, CALL LITE IN REACH, PT FAMILY CALLS WITH NEEDS.
--- NOTE | 2021-08-09 08:30 | NUR ---
PT MOVING ABOUT, SOME GRIMMACES. MED PER ORDERS.
--- NOTE | 2021-08-09 09:40 | NUR ---
FAMILY REPORTS PT HAVING SEIZURES MOSTLY IN ARMS. UPPER TORSO. I WITNESSED END OF SUCH. DID ADMIN ATIVEN PER ORDERS. PT RELAXING.
--- NOTE | 2021-08-09 14:35 | NUR ---
PT RESTING QUIETLY AT THIS TIME. RESP SLOW, EASY, UNLABORED. ARMS AT REST. FAMILY AT BEDSIDE.
--- NOTE | 2021-08-09 17:03 | NUR ---
LATE NOTE: Pt was seen yesterday 08.09.21. Multiple family members were present and spoke openly about their love and memories with the pt. Family reflect on Joe's last wish to see graduate then go to [facility]. PT was able to complete that task. Pt was non-responsive, but family asks for prayer. They gathered around as a supplication was pronounced. They were grateful. Spoke with daughter today briefly. She looked tired and stated they had been here all night with her. They wondered if she was hanging on because they were present, so they stepped out.
--- NOTE | 2021-08-09 17:18 | NUR ---
SPOKE TO FAMILY. PT IS RESTING AT THIS TIME. ATTENDS CLEAN/DRY. FAMILY ATTENTIVE TO PT NEEDS AND ASKS FOR CARE WANTS. BED IN LOW POSITION, CALL LITE IN REACH,
--- NOTE | 2021-08-09 17:20 | NUR ---
PT IS ON COMFORT CARE, HER RESP ARE PRESENTLY SLOW, AND IRREGULAR, PT RESTING QUIETLY, PREFERS TO BE ON HER LEFT SIDE. CHECKED TO KEEP CLEAN AND DRY. FAMILY AT BEDSIDE MOSTLY ALL THE TIME. DID CHANGE SOME MEDS FOR HER BENEFIT. NO OTHER CONCERNS NOTED. BED IN LOW POSITION, CALL LITE IN REACH,
--- NOTE | 2021-08-09 18:00 | NUR ---
SEIZURE LIKE ACTIVITY. ARMS LIGHTLY JERKING. MED WITH ATIVAN. PT RELAXED. RESTING AGAIN.
--- NOTE | 2021-08-10 05:30 | NUR ---
PT IS ON COMFORT CARE, SURROUNDED BY FAMILY, BREATHING IS SHALLOW, MEDICATED FOR PAIN AND ANXIETY THIS SHIFT. RESTLESS AT TIMES BUT DOES NOT OPEN EYES. PETER POWERGLIDE, COCCYX WOUND, DIALYSIS CATH TO R CHEST.
--- NOTE | 2021-08-10 10:07 | NUR ---
PATIENT WAS GIVEN 1 MG ATIVAN AT 0923, DUE TO SEIZURE ACTIVITY LASTING ABOUT 2 MINUTES. GENERALIZED BODY CONTRACTIONS OCCURED PER DAUGHTER. DAUGHTER/FAMILY REPORT THE ATIVAN WAS EFFECTIVE AND PATIENT HAS NOT SEIZURE ACTIVITY SINCE.
--- NOTE | 2021-08-10 13:36 | NUR ---
PT FAMILY AT BEDSIDE THEY FEEL IS STILL HAVING SOME SMALL SEIZURES. rEVIEW WITH PHYSICIAN WILL STRTRECTAL SUPPOSITORY OF VALLIUM.
--- NOTE | 2021-08-10 18:26 | NUR ---
PATIENT CONTINUES TO BE LETHARGIC ON COMFORT CARE, SURROUNDED BY FAMILY. SHE RECIEVED 1MG ATIVAN AT 0923 FOR SEIZURE ACTIVITY, AND 12.5 MG FETYNL [id number] FOR PAIN. SHE HAS BEEN RESTING COMFORTABLY SINCE THE PAIN MEDICATON WAS GIVEN. FAMILY HAS BEEN IN ROOM ALL DAY, INCLUDING SON WHO JUST GOT OVER COVID AND IS SEEING HIS MOM FOR THE FIRST TIME SINCE HIS COVID DX.
--- NOTE | 2021-08-11 05:40 | NUR ---
PT IS ON COMFORT CARE SURROUNDED BY FAMILY. NO MEDICATION NEEDED SO FAR THIS SHIFT, PT IS NON RESPONSIVE; FAMILY DOES NOT WANT HER MOVED, VERY SLOW SHALLOW BREATHING AT 8 PER MINUTE.
--- NOTE | 2021-08-11 10:06 | NUR ---
UPON 0800 COMFORT CARE ROUNDING. FAMILY STATED THAT PATIENT WAS OCCASIONALLY GRIMACING, MEDICATED PER EMAR. FAMILY REFUSED DRESSING CHANGE AND REPOSITIONING STATING THAT THEY JUST WANT HER TO STAY COMFORTABLE.
--- NOTE | 2021-08-11 13:44 | NUR ---
PT'S FAMILY AGREED TO LET NURSE ASSESS ATTENDS FOR NEED TO CHANGE. ATTENDS DRY AND INTACT. PORT VISUALIZED BUT FURTHER CARE FAMILY OPTED OUT FROM. REFUSED DRESSING CHANGE AND REPOSITION
--- NOTE | 2021-08-11 15:03 | NUR ---
REPOSITIONED PT TO L. SIDE, CHANGED ATTENDS AND COCCYX DRESSING. ORAL CARE AND EMPTIED DRAIN BAG. PT MOAING AFTER CARE, MEDICATED FOR ANXIETY PER EMAR.
--- NOTE | 2021-08-11 15:09 | NUR ---
Comfort care visit to room and family. Pt did not stir to voice or touch. Skin warm and dry. Pt lying flat, sl to left side. She appears comfortable. Respirations quiet and unlabored at 6-8 breaths/min. Very minimal upper airway secretions heard. Time spent speaking with froilan/granddau. Two other family members asleep in her room. Pt has had multiple family members present nearly all the time per froilan. Family appears tired. They express gratitude for pt's care. Family denies any needs currently.
--- NOTE | 2021-08-11 17:14 | NUR ---
SHIFT SUMMARY PT NON-RESPONSIVE. ON COMFORT CARE. PT MEDICATED FOR PAIN, ANXIETY AND SECRETIONS PER EMAR. FAMILY PRESENT AT BEDSIDE THROUGHOUT THE DAY. PT CONTINUES TO HAVE APNEIC EPISODES, SOMETIMES GOING 45 SECONDS WITHOUT BREATHING PER FAMILY OBSERVATION. SEE PRIOR NOTES FROM THIS SHIFT. BED IN LOW POSITION, CALL LIGHT WITHIN REACH OF FAMILY MEMBERS. DRESSING TO COCCYX CHANGED. PT HAD SMALL BM. 250 ML OUT VIA EXTERNAL BILIARY DRAIN.
--- NOTE | 2021-08-11 18:29 | NUR ---
UPON ROUNDING AT THIS TIME, PT IS RESTING COMFORTABLY THOUGH PATIENT FAMILY STATES THAT PATIENT IS HAVING "COUGHING EPISODES" THAT LAST ABOUT 10 MINUES EACH AND INCLUDE APNEIC BREATHING. UPON REVIEW OF EMAR, THERE IS NOT ANY PHARMACOLOGICAL INTERVENTIONS FOR COUGH AVAILABLE AT THIS TIME. PT HAS SCAPOLAMINE PATCH ON FOR SECRETIONS. UPON BEDSIDE REPORT, THIS NURSE WILL PASS THIS INFORMATION ON TO [employer] SALES CONSULTANT NURSE WHO CAN DECIDE THE NEXT BEST ACTION.
--- NOTE | 2021-08-12 04:26 | NUR ---
SHIFT SUMMARY 76 YR F ADMITTED ON 08/02/21. DNR. COMFORT CARE. NO ACUTE CHANGES THIS SHIFT. PT HAS SLEPT FOR ALL OF THIS SHIFT W/ HER FAMILY IN THE ROOM AT ALL TIMES. NO COUGHING OR APNEIC EPISODES REPORTED. PT WAS GIVEN FENTYNL ONCE PER FAMILY REQUEST. PT AND FAMILY ARE RESTING AT THIS TIME. WILL CONTINUE TO MONITOR PT'S CONDITION AND OFFER CARE REQUESTED OR NEEDED.
--- NOTE | 2021-08-12 07:48 | NUR ---
PATIENT AT 07, FAMILY AT BEDSIDE. AWAITING ARRIVAL OF HER SON. DR. HERNANDEZ NOTIFIED.
--- NOTE | 2021-08-12 09:53 | NUR ---
DANIEL FROM [facility] PICKED UP PATIENT AT 0948 VIA [facility].
== END 2021-08-12 09:50 | DRG 871 ==
LOC: ER 19:19 → ICUW 08-02 00:56 → ERHOLD 08-02 00:56 → ICUW 08-02 02:55 → MEDS 08-03 16:30
PROVIDERS: Internal Medicine; Internal Medicine Nephrology; Student in an Organized Health Care Education/Training Program; ADMIT Family Medicine
PROC: 5A09357 Assistance with Respiratory Ventilation, Less than 24 Consecutive Hours, Continuous Positive Airway Pressure (ICD-10-PCS; principal; 2021-08-02)
PROC: 3E03329 Introduction of Other Anti-infective into Peripheral Vein, Percutaneous Approach (ICD-10-PCS; 2021-08-02)
PROC: 5A1D70Z Performance of Urinary Filtration, Intermittent, Less than 6 Hours Per Day (ICD-10-PCS; 2021-08-02)
DX: A41.9 Sepsis, unspecified organism (principal); L89.154 Pressure ulcer of sacral region, stage 4; R65.21 Severe sepsis with septic shock; G92.8 Other toxic encephalopathy; N18.6 End stage renal disease; I50.23 Acute on chronic systolic (congestive) heart failure; Z66 Do not resuscitate; Z51.5 Encounter for palliative care; M86.68 Other chronic osteomyelitis, other site; E87.1 Hypo-osmolality and hyponatremia; N25.81 Secondary hyperparathyroidism of renal origin; I50.32 Chronic diastolic (congestive) heart failure; I13.2 Hypertensive heart and chronic kidney disease with heart failure and with stage 5 chronic kidney disease, or end stage renal disease; D63.1 Anemia in chronic kidney disease; Z78.1 Physical restraint status; E03.9 Hypothyroidism, unspecified; R79.89 Other specified abnormal findings of blood chemistry; R56.9 Unspecified convulsions; G47.33 Obstructive sleep apnea (adult) (pediatric); I48.0 Paroxysmal atrial fibrillation; Z99.2 Dependence on renal dialysis; E87.6 Hypokalemia; E11.69 Type 2 diabetes mellitus with other specified complication; E88.09 Other disorders of plasma-protein metabolism, not elsewhere classified; E11.22 Type 2 diabetes mellitus with diabetic chronic kidney disease; R16.0 Hepatomegaly, not elsewhere classified; F03.90 Unspecified dementia, unspecified severity, without behavioral disturbance, psychotic disturbance, mood disturbance, and anxiety; Z87.891 Personal history of nicotine dependence; Z86.73 Personal history of transient ischemic attack (TIA), and cerebral infarction without residual deficits; Z88.8 Allergy status to other drugs, medicaments and biological substances; Z91.09 Other allergy status, other than to drugs and biological substances; Z79.4 Long term (current) use of insulin; Z79.01 Long term (current) use of anticoagulants; Z79.899 Other long term (current) drug therapy; Z90.49 Acquired absence of other specified parts of digestive tract; Z98.890 Other specified postprocedural states; Z98.51 Tubal ligation status
CPT/HCPCS: 36415; 36600; 70450; 71045; 74177; 80053; 80069; 80202; 81001; 82803; 82947; 83605; 83735; 83880; 84100; 84146; 84484; 85014; 85018; 85025; 85610; 85651; 86140; 87040; 87086; 93005; 93010; 94660; 94762; 96361; 96374; 96375; 99285-25; A9270; C1751; J0692; J0696; J0881; J1815; J1953; J2060; J2405; J3010; J3360; J3370; J3480; J7030; J7060; Q9967